=== PATIENT | male | born 1955 | race Hispanic/Latino ===

== ENCOUNTER 2016-07-19 19:33 | Inpatient (IN) | payer MEDICAID ==
--- NOTE | 2016-07-19 20:55 | Emergency Department Report ---
ED Dizziness HPI - General Chief Complaint: Dizziness Stated Complaint: FALL/FACIAL LACERATIONS Time Seen by Provider: 07/19/16 20:54 Source: patient Mode of arrival: Stretcher Limitations: Physical Limitation - History of Present Illness Initial Comments: This is a 61-year-old gentleman with a long-standing history of alcoholism. He presents to the ED today finally because he is so weak that he is becoming lightheaded every time he stands up and tries to ambulate. He reports several falls causing abrasions to his right arm as well as his left face over the last couple of days. He states he is not eating or drinking. He has a brother at the bedside who corroborates with this. Patient has not been drinking heavily for the last 3 weeks. He still is drinking one or 2 beers a day however. He does smoke heavily as well. He did see his general production manager 2 days ago regards to left facial skin cancer. He was told that the skin cancers too involved for dermatologic procedure in the office and that he would need to see a surgeon regarding more invasive treatment. Patient reports generalized body pains. He states he has a history of rheumatologic disease. He is also complaining of pain in the left facial area from his fall today. He denies chest pain or shortness of breath he denies headache. Of note is well patient recently had a left eye infection. He did see the information security manager regarding this. He is on some drops for this. He reports complete loss of the vision in his left eye over the last 2 weeks however. MD Complaint: lightheadedness, near syncope -: week(s) (3) Timing: gradual onset Description: lightheadedness, near-syncope History of Same: No History of Trauma: No Severity: moderate Improves With: rest Worsens With: movement, position Associated Symptoms: loss of appetite, weakness - Related Data Allergies Allergy/AdvReac Type Severity Reaction Status Date / Time No Known Allergies Allergy Unverified 07/19/16 20:11 ED Review of Systems ROS: Stated complaint: FALL/FACIAL LACERATIONS Other details as noted in HPI Constitutional: weakness. denies: chills, fever Eyes: eye discharge, vision change. denies: eye pain ENT: denies: ear pain, throat pain Respiratory: denies: cough, shortness of breath, wheezing Cardiovascular: denies: chest pain, palpitations Endocrine: no symptoms reported Gastrointestinal: denies: abdominal pain, nausea, diarrhea Genitourinary: denies: urgency, dysuria Musculoskeletal: arthralgia. denies: back pain, joint swelling Skin: other (L facial skin cancer). denies: rash, lesions Neurological: weakness. denies: headache, paresthesias Psychiatric: other (etoh abuse). denies: anxiety, depression Hematological/Lymphatic: denies: easy bleeding, easy bruising ED Past Medical Hx - Past Medical History Previous Medical History?: Yes Hx of Cancer: Yes (skin cancer left side of face) - Surgical History Past Surgical History?: No Hx Appendectomy: Yes (age 10) - Social History Smoking Status: Current Every Day Smoker Substance Use Type: Alcohol ED Physical Exam - General Limitations: Physical Limitation General appearance: alert, in distress (mild discomfort), other (very thin and frail appearing) - Head Head exam: Present: other (left facial aspect with a relatively large area of macerated tissue. Some slight use is noted at the base. There is some muscular tissue noted as well. It appears quite eroded in nature.) - Eye Pupils: Present: other (left eye with hazy cornea. Conjunctiva is mildly injected. There is some whitish drainage noted as well. Pupil is minimally reactive at 4 mm. Extraocular movements are noted to be intact. Vision grossly demonstrates only light darkness in the left eye. Normal vision in the right eye. The right eye is otherwise unremarkable.) - ENT ENT exam: Present: mucous membranes dry, TM's normal bilaterally - Neck Neck exam: Present: normal inspection, full ROM. Absent: meningismus, lymphadenopathy - Respiratory Respiratory exam: Present: decreased breath sounds (mild). Absent: wheezes, rales, rhonchi - Cardiovascular Cardiovascular Exam: Present: regular rate. Absent: systolic murmur, diastolic murmur - GI/Abdominal GI/Abdominal exam: Present: soft. Absent: tenderness, guarding, rebound - Extremities Exam Extremities exam: Present: other (right arm and forearm with several superficial abrasions and ecchymosis lesions. Left forearm with several ecchymosis lesions as well. Lower extremities bilaterally with chronic skin change and doughy appearance. 2-3+ edema bilaterally. Equal distal pedal pulses are noted bilaterally. Mild tenderness in pretibial area. No calf tenderness appreciated.) - Back Exam Back exam: Present: normal inspection. Absent: CVA tenderness (R), CVA tenderness (L), paraspinal tenderness, vertebral tenderness - Neurological Exam Neurological exam: Present: alert, oriented X3, other (moves all 4 extremities spontaneously) - Psychiatric Psychiatric exam: Present: depressed. Absent: homicidal ideation, suicidal ideation - Skin Skin exam: Present: warm, dry, petechiae, ecchymosis ED Course Vital Signs 07/19/16 19:35 Temperature 97.5 F L Pulse Rate 86 Respiratory 14 Rate Blood Pressure 115/84 Blood Pressure 115/84 [Right] O2 Sat by Pulse 96 Oximetry - Reevaluation(s) Reevaluation #1: 07/19/16 20:59 ECG at 2050 with normal sinus rhythm at 84 bpm with a normal GA and QRS noted. Isoelectric. There is some nonspecific Q waves noted septally as well as some Q waves inferiorly. No STEMI noted. Reevaluation #2: 07/19/16 22:13 Patient not well-appearing in general with a failure to thrive type of picture. His falls over the last couple days seem consistent with orthostatic/ hypovolemic-related syncope. Blood pressure and heart rate or okay sitting in the bed. He does not feel lightheaded or dizzy while he sitting up and talking to me at this time. He does describe persistent weakness however. Labs demonstrate hyponatremia. Given IV fluids here. He is clinically mildly dehydrated as well. Clearly appears malnourished and appearance of long-term alcohol abuse. He is very genuine in desiring help at this point. I Feel like he feels that he has hit rock bottom and is ready to clean himself up. ED Medical Decision Making - Lab Data Result diagrams: 07/19/16 20:34 07/19/16 20:34 Critical care attestation.: If time is entered above; I have spent that time in minutes in the direct care of this critically ill patient, excluding procedure time. ED Disposition Clinical Impression: Hyponatremia, Weakness, Alcoholism, Abrasions of multiple sites, Dehydration, Failure to thrive in adult Conjunctivitis Qualifiers: Conjunctivitis type: acute Acute conjunctivitis type: unspecified Laterality: left Qualified Code(s): H10.32 - Unspecified acute conjunctivitis, left eye Disposition: OP ADMITTED IP TO THIS HOSP Is pt being admited?: Yes Does the pt Need Aspirin: No Condition: Stable Referrals: PRIMARY CARE, [Primary Care Provider] - 3-5 Days Time of Disposition: 22:03
[2016-07-19 21:04] LABS: Hematocrit 29.2 % (35.5-45.6); Hemoglobin 9.9 gm/dl (11.8-15.2); Mean Corpuscular HGB Conc 34 % (32-34); Mean Corpuscular Hemoglobin 37 pg (28-32); Mean Corpuscular Volume 110 fl (84-94); Red Blood Count 2.66 M/mm3 (3.65-5.03); Red Cell Distribution Width 16.1 % (13.2-15.2); White Blood Count 4.5 K/mm3 (4.5-11.0)
[2016-07-19 21:09] LABS: Alanine Aminotransferase 17 units/L (7-56); Albumin 2.4 g/dL (3.9-5); Albumin/Globulin Ratio 0.8 %; Alkaline Phosphatase 388 units/L (35-129); Anion Gap 17 mmol/L; Blood Urea Nitrogen 5 mg/dL (9-20); Calcium 7.5 mg/dL (8.4-10.2); Carbon Dioxide 24 mmol/L (22-30); Chloride 85.1 mmol/L (98-107); Glucose 93 mg/dL (75-100); Potassium 3.6 mmol/L (3.6-5.0); Sodium 122 mmol/L (137-145); Total Protein 5.3 g/dL (6.3-8.2)
[2016-07-19] MEDS ORDERED: DILAUDID IV ONE ×2 (21:24→23:01)
[2016-07-19] MEDS ORDERED: NACL 0.9% 1000 ML 1,000 ML IV ONE (21:24)
[2016-07-19 21:34] LABS: Platelet Count 41 K/mm3 (140-440)
[2016-07-19 21:54] LABS: INR 0.92 (0.87-1.13)
[2016-07-19 21:55] LABS: Partial Thromboplastin Time 30.9 Sec. (24.2-36.6)
[2016-07-19] MEDS ORDERED: MILK OF MAGNESIA PO PRN (22:16)
[2016-07-19] MEDS ORDERED: ZOFRAN IV PRN (22:16)
[2016-07-19] MEDS ORDERED: DULCOLAX PR PRN (22:16)
--- NOTE | 2016-07-19 22:16 | History and Physical Report ---
History of Present Illness Date of examination: 07/19/16 History of present illness: This is a 61-year-old gentleman with a long-standing history of alcoholism. He presents to the ED today finally because he is so weak that he is becoming lightheaded every time he stands up and tries to ambulate. He reports several falls causing abrasions to his right arm as well as his left face over the last couple of days. He states he is not eating or drinking. He has a brother at the bedside who corroborates with this. Patient has not been drinking heavily for the last 3 weeks. He still is drinking one or 2 beers a day however. He does smoke heavily as well. He did see his excellence specialist 2 days ago regards to left facial skin cancer. He was told that the skin cancers too involved for dermatologic procedure in the office and that he would need to see a surgeon regarding more invasive treatment. Patient reports generalized body pains. He states he has a history of rheumatologic disease. He is also complaining of pain in the left facial area from his fall today. He denies chest pain or shortness of breath he denies headache. Of note is well patient recently had a left eye infection. He did see the terrazzo mechanic helper regarding this. He is on some drops for this. He reports complete loss of the vision in his left eye over the last 2 weeks however. Medications and Allergies Allergies Allergy/AdvReac Type Severity Reaction Status Date / Time No Known Allergies Allergy Verified 07/19/16 22:28 Active Meds: Active Medications Sodium Chloride (Nacl 0.9% 1000 Ml) 1,000 mls @ 999 mls/hr IV BOLUS ONE Stop: 07/19/16 22:24 Last Admin: 07/19/16 21:44 Dose: 999 mls/hr Review of Systems Constitutional: anorexia, fatigue, weakness, malaise, poor appetite Integumentary: wounds Exam - Constitutional Vitals: Temp Pulse Resp BP Pulse Ox 97.5 F L 86 14 115/84 96 07/19/16 19:35 07/19/16 19:35 07/19/16 19:35 07/19/16 19:35 07/19/16 19:35 General appearance: Present: mild distress, cachectic, disheveled - EENT Eyes: Present: PERRL, EOM intact ENT: hearing intact, clear oral mucosa, poor dentition, other (large ulcerative lesion on the left side of the face) - Neck Neck: Present: supple, normal ROM - Respiratory Respiratory effort: normal Respiratory: bilateral: CTA - Cardiovascular Rhythm: regular Heart Sounds: Present: S1 & S2 - Extremities Extremities: no ischemia, No edema - Abdominal General gastrointestinal: Present: soft, non-tender, non-distended, normal bowel sounds - Psychiatric Psychiatric: appropriate mood/affect, intact judgment & insight - Neurologic Neurologic: CNII-XII intact, moves all extremities Results - Labs CBC & Chem 7: 07/19/16 20:34 07/19/16 20:34 Labs: Laboratory Last Values WBC 4.5 K/mm3 (4.5-11.0) 07/19/16 20:34 RBC 2.66 M/mm3 (3.65-5.03) L 07/19/16 20:34 Hgb 9.9 gm/dl (11.8-15.2) L 07/19/16 20:34 Hct 29.2 % (35.5-45.6) L 07/19/16 20:34 MCV 110 fl (84-94) H 07/19/16 20:34 MCH 37 pg (28-32) H 07/19/16 20:34 MCHC 34 % (32-34) 07/19/16 20:34 RDW 16.1 % (13.2-15.2) H 07/19/16 20:34 Plt Count 41 K/mm3 (140-440) L 07/19/16 20:34 PT 12.3 Sec. (12.2-14.9) 07/19/16 20:34 INR 0.92 (0.87-1.13) 07/19/16 20:34 APTT 30.9 Sec. (24.2-36.6) 07/19/16 20:34 Sodium 122 mmol/L (137-145) L 07/19/16 20:34 Potassium 3.6 mmol/L (3.6-5.0) 07/19/16 20:34 Chloride 85.1 mmol/L (98-107) L 07/19/16 20:34 Carbon Dioxide 24 mmol/L (22-30) 07/19/16 20:34 Anion Gap 17 mmol/L 07/19/16 20:34 BUN 5 mg/dL (9-20) L 07/19/16 20:34 Creatinine 0.5 mg/dL (0.8-1.5) L 07/19/16 20:34 Estimated GFR > 60 ml/min 07/19/16 20:34 BUN/Creatinine Ratio 10.00 % 07/19/16 20:34 Glucose 93 mg/dL (75-100) 07/19/16 20:34 Calcium 7.5 mg/dL (8.4-10.2) L 07/19/16 20:34 Total Bilirubin 1.0 mg/dL (0.1-1.2) 07/19/16 20:34 AST 27 units/L (5-40) 07/19/16 20:34 ALT 17 units/L (7-56) 07/19/16 20:34 Alkaline Phosphatase 388 units/L (35-129) H 07/19/16 20:34 Total Protein 5.3 g/dL (6.3-8.2) L 07/19/16 20:34 Albumin 2.4 g/dL (3.9-5) L 07/19/16 20:34 Albumin/Globulin Ratio 0.8 % 07/19/16 20:34 TSH 7.300 mlU/mL (0.270-4.200) H 07/19/16 20:34 Assessment and Plan - Patient Problems (1) Skin cancer of face Current Visit: Yes Status: Acute Plan to address problem: Patient was seen as an outpatient by dermatology which felt that patient should have more extensive medical care for the lesion. Patient will probably need outpatient plastic surgery. Patient had a fall and hit that side of his face. We'll get facial x-rays (2) Cellulitis Current Visit: Yes Status: Acute Qualifiers: Site of cellulitis: S Site of cellulitis of extremity: S Site of cellulitis of trunk: S Laterality: L Plan to address problem: Patient is cellulitis of the bilateral lower extremities. We'll start IV antibiotics follow cultures (3) Alcoholism Current Visit: Yes Status: Acute Plan to address problem: Patient has an extensive history of alcohol abuse. Last drink was yesterday. Will start patient on CIWA protocol. We'll give thiamine and folic acid and extensive IV fluids. We'll check magnesium (4) Failure to thrive in adult Current Visit: Yes Status: Acute Plan to address problem: Patient has had poor appetite for at least 1 month according to the family. Patient is a chronic alcoholic (5) Hyponatremia Current Visit: Yes Status: Acute Plan to address problem: We will start IV fluid hydration. Continue to follow sodium level. Patient is severely malnourished (6) Weakness Current Visit: Yes Status: Acute Plan to address problem: Weakness is possibly due to decreased appetite compounded with chronic alcoholism. We'll start IV fluid hydration and will get dietary consult (7) Alcohol abuse Current Visit: Yes Status: Acute Plan to address problem: Patient has been counseled about alcohol cessation and patient will be started on CIWA protocol and will be started on IV thiamine IV folic acid
[2016-07-19] MEDS ORDERED: ATIVAN IV PRN ×2 (22:22)
[2016-07-20] MEDS: MORPHINE IV PRN ×4 (01:24→23:01)
[2016-07-20 02:37] LABS: Bilirubin,Urine NEG (Negative); Blood,Urine NEG (Negative); Ketones,Urine TR mg/dL (Negative); Leukocyte Esterase,Urine NEG (Negative); Nitrite,Urine NEG (Negative); Protein,Urine <15 mg/dL mg/dL (Negative); Urobilinogen,Urine < 2.0 mg/dL (<2.0)
[2016-07-20] MEDS: SENOKOT PO SCH ×3 (03:59→22:34)
[2016-07-20] MEDS: COLACE PO SCH ×3 (03:59→22:35)
[2016-07-20 05:47] LABS: Basophils % (Auto) 0.2 % (0.0-1.8); Eosinophils % (Auto) 0.1 % (0.0-4.3); Hematocrit 24.7 % (35.5-45.6); Hemoglobin 8.2 gm/dl (11.8-15.2); Mean Corpuscular HGB Conc 33 % (32-34); Mean Corpuscular Hemoglobin 37 pg (28-32); Red Blood Count 2.23 M/mm3 (3.65-5.03); Red Cell Distribution Width 16.3 % (13.2-15.2); White Blood Count 4.3 K/mm3 (4.5-11.0)
[2016-07-20 05:55] LABS: Mean Corpuscular Volume 111 fl (84-94); Platelet Count 36 K/mm3 (140-440)
[2016-07-20 06:06] LABS: Alanine Aminotransferase 14 units/L (7-56); Albumin 2.2 g/dL (3.9-5); Albumin/Globulin Ratio 0.9 %; Alkaline Phosphatase 311 units/L (35-129); Anion Gap 16 mmol/L; Bilirubin,Total 0.8 mg/dL (0.1-1.2); Blood Urea Nitrogen 5 mg/dL (9-20); Carbon Dioxide 22 mmol/L (22-30); Chloride 88.1 mmol/L (98-107); Glucose 77 mg/dL (75-100); Potassium 3.4 mmol/L (3.6-5.0); Sodium 123 mmol/L (137-145); Total Protein 4.7 g/dL (6.3-8.2)
[2016-07-20] MEDS: SYNTHROID PO SCH (06:58)
--- NOTE | 2016-07-20 09:23 | XRay Report ---
FACIAL BONES, 4 views: History: Pain after fall. A nondisplaced nasal bone fracture is suspected on the lateral image. The side is indeterminate. Please correlate with the patient. The sinuses are clear. The orbital cavities are intact. The zygomas and mandible within normal limits. IMPRESSION: Possible nasal bone fracture. No other facial bone abnormality detected.
[2016-07-20] MEDS ORDERED: LOVENOX SUB-Q SCH (10:00)
[2016-07-20] MEDS: K-DUR PO SCH (10:28)
[2016-07-20] MEDS: HABITROL TD SCH (10:30)
[2016-07-20] MEDS: LOVENOX SUB-Q SCH (10:30)
[2016-07-20] MEDS: VITAMIN B-1 100 MG in NACL 0.9% 50 ML IV SCH (10:30)
[2016-07-20] MEDS: LEVAQUIN 500MG/100ML 500 MG/100 ML BAG IV SCH (10:31)
[2016-07-20] MEDS: PROTONIX PO SCH ×2 (13:21→22:35)
--- NOTE | 2016-07-20 13:30 | Progress Note ---
Assessment and Plan Assessment and plan: Patient appears to be anorectic cachectic chronically ill-appearing with failure to thrive. Long-term prognosis poor. 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 Malignancy could also be playing some role as well as malnutrition. Has diffuse as indicated. Increase nutrition. Alcohol cessation (2) Abrasions of multiple sites Current Visit: Yes Status: Acute Plan to address problem: Abrasion secondary to falls thrombocytopenia alcoholism. None life threatening or infectious. Besides the left facial cancer. (3) Alcohol abuse Current Visit: Yes Status: Acute Plan to address problem: Alcohol cessation very important. Very important with his nutrition and healing of his facial ulcer. (4) Cellulitis Current Visit: Yes Status: Acute Qualifiers: Site of cellulitis: S Site of cellulitis of extremity: S Site of cellulitis of trunk: S Laterality: L Plan to address problem: Bilateral lower extremities resolving. Not very impressed by the cellulitis. Continue anabiotic so now but can change to by mouth tomorrow. (5) Dehydration Current Visit: Yes Status: Acute Plan to address problem: 10 IV volume replacement. (6) Failure to thrive in adult Current Visit: Yes Status: Acute Plan to address problem: Failure to thrive secondary to alcoholism. Agent currently on CIWA protocol. Urge by mouth intake. (7) Hyponatremia Current Visit: Yes Status: Acute Plan to address problem: Appears to be hypovolemic hyponatremia we'll continue IV normal saline. (8) Skin cancer of face Current Visit: Yes Status: Acute Plan to address problem: I will of dermatology outpatient. (9) Weakness Current Visit: Yes Status: Acute Plan to address problem: This multifactorial see above. Continue present management. History Interval history: Patient laying in bed states I'm trying to do the best I can". Patient states pain fairly well-controlled today. Being they by the nurse. No evidence of alcohol withdrawal today. Hospitalist Physical - Physical exam Narrative exam: Thin cachectic wasted appearing very weak. - Constitutional Vitals: Temp Pulse Resp BP Pulse Ox 97.3 F L 91 H 20 96/65 92 07/20/16 12:21 07/20/16 12:21 07/20/16 12:21 07/20/16 12:21 07/20/16 08:54 General appearance: Present: mild distress, cachectic, disheveled - EENT ENT: hearing intact, other (left facial cancer. With excoriation and erythema around the area.) - Neck Neck: Present: supple, normal ROM - Respiratory Respiratory effort: normal Respiratory: negative: other (or inspiratory effort.) - Cardiovascular Rhythm: regular Heart Sounds: Present: S1 & S2 - Extremities Extremities: no ischemia, pulses intact, pulses symmetrical Extremity abnormal: other (patient has redness bilateral lower extremity. Appears to be more venous as opposed to cellulitis.) - Abdominal General gastrointestinal: soft, non-tender, normal bowel sounds, other (F4) - Psychiatric Psychiatric: appropriate mood/affect, cooperative - Neurologic Neurologic: CNII-XII intact Results - Labs CBC & Chem 7: 07/20/16 04:38 07/20/16 04:38 Labs: Laboratory Last Values WBC 4.3 K/mm3 (4.5-11.0) L 07/20/16 04:38 RBC 2.23 M/mm3 (3.65-5.03) L 07/20/16 04:38 Hgb 8.2 gm/dl (11.8-15.2) L 07/20/16 04:38 Hct 24.7 % (35.5-45.6) L 07/20/16 04:38 MCV 111 fl (84-94) H 07/20/16 04:38 MCH 37 pg (28-32) H 07/20/16 04:38 MCHC 33 % (32-34) 07/20/16 04:38 RDW 16.3 % (13.2-15.2) H 07/20/16 04:38 Plt Count 36 K/mm3 (140-440) L 07/20/16 04:38 Lymph % (Auto) 11.8 % (13.4-35.0) L 07/20/16 04:38 [place] % (Auto) 7.8 % (0.0-7.3) H 07/20/16 04:38 Eos % (Auto) 0.1 % (0.0-4.3) 07/20/16 04:38 Baso % (Auto) 0.2 % (0.0-1.8) 07/20/16 04:38 Lymph # 0.5 K/mm3 (1.2-5.4) L 07/20/16 04:38 [place] # 0.3 K/mm3 (0.0-0.8) 07/20/16 04:38 Eos # 0.0 K/mm3 (0.0-0.4) 07/20/16 04:38 Baso # 0.0 K/mm3 (0.0-0.1) 07/20/16 04:38 Seg Neutrophils % 80.1 % (40.0-70.0) H 07/20/16 04:38 Seg Neutrophils # 3.4 K/mm3 (1.8-7.7) 07/20/16 04:38 PT 12.3 Sec. (12.2-14.9) 07/19/16 20:34 INR 0.92 (0.87-1.13) 07/19/16 20:34 APTT 30.9 Sec. (24.2-36.6) 07/19/16 20:34 Sodium 123 mmol/L (137-145) L 07/20/16 04:38 Potassium 3.4 mmol/L (3.6-5.0) L 07/20/16 04:38 Chloride 88.1 mmol/L (98-107) L 07/20/16 04:38 Carbon Dioxide 22 mmol/L (22-30) 07/20/16 04:38 Anion Gap 16 mmol/L 07/20/16 04:38 BUN 5 mg/dL (9-20) L 07/20/16 04:38 Creatinine 0.4 mg/dL (0.8-1.5) L 07/20/16 04:38 Estimated GFR > 60 ml/min 07/20/16 04:38 BUN/Creatinine Ratio 12.50 % 07/20/16 04:38 Glucose 77 mg/dL (75-100) 07/20/16 04:38 Calcium 7.0 mg/dL (8.4-10.2) L 07/20/16 04:38 Magnesium 2.1 mg/dL (1.7-2.3) 07/20/16 04:38 Total Bilirubin 0.8 mg/dL (0.1-1.2) 07/20/16 04:38 AST 23 units/L (5-40) 07/20/16 04:38 ALT 14 units/L (7-56) 07/20/16 04:38 Alkaline Phosphatase 311 units/L (35-129) H 07/20/16 04:38 Total Protein 4.7 g/dL (6.3-8.2) L 07/20/16 04:38 Albumin 2.2 g/dL (3.9-5) L 07/20/16 04:38 Albumin/Globulin Ratio 0.9 % 07/20/16 04:38 TSH 7.300 mlU/mL (0.270-4.200) H 07/19/16 20:34 Urine Color Yellow (Yellow) 07/19/16 Unknown Urine Turbidity Clear (Clear) 07/19/16 Unknown Urine pH 6.0 (5.0-7.0) 07/19/16 Unknown Ur Specific [place] 1.006 (1.003-1.030) 07/19/16 Unknown Urine Protein <15 mg/dl mg/dL (Negative) 07/19/16 Unknown Urine Glucose (UA) Neg mg/dL (Negative) 07/19/16 Unknown Urine Ketones Tr mg/dL (Negative) 07/19/16 Unknown Urine Blood Neg (Negative) 07/19/16 Unknown Urine Nitrite Neg (Negative) 07/19/16 Unknown Urine Bilirubin Neg (Negative) 07/19/16 Unknown Urine Urobilinogen < 2.0 mg/dL (<2.0) 07/19/16 Unknown Ur Leukocyte Esterase Neg (Negative) 07/19/16 Unknown Urine WBC (Auto) 1.0 /HPF (0.0-6.0) 07/19/16 Unknown Urine RBC (Auto) 0.0 /HPF (0.0-6.0) 07/19/16 Unknown
[2016-07-20] MEDS: NACL 0.9% 1000 ML 1,000 ML IV SCH (22:57)
[2016-07-20] MEDS: AMBIEN PO PRN (23:02)
[2016-07-21] MEDS: SYNTHROID PO SCH (06:15)
[2016-07-21] MEDS: NACL 0.9% 1000 ML 1,000 ML IV SCH ×2 (07:06→16:17)
[2016-07-21 08:51] LABS: Basophils % (Auto) 0.2 % (0.0-1.8); Eosinophils % (Auto) 0.1 % (0.0-4.3); Hematocrit 22.9 % (35.5-45.6); Hemoglobin 7.7 gm/dl (11.8-15.2); Mean Corpuscular HGB Conc 33 % (32-34); Mean Corpuscular Hemoglobin 37 pg (28-32); Red Blood Count 2.06 M/mm3 (3.65-5.03); Red Cell Distribution Width 16.7 % (13.2-15.2); White Blood Count 4.2 K/mm3 (4.5-11.0)
[2016-07-21 09:00] LABS: Mean Corpuscular Volume 111 fl (84-94); Platelet Count 38 K/mm3 (140-440)
[2016-07-21 09:12] LABS: Alanine Aminotransferase 14 units/L (7-56); Alkaline Phosphatase 310 units/L (35-129); Anion Gap 13 mmol/L; Bilirubin,Total 0.7 mg/dL (0.1-1.2); Blood Urea Nitrogen 3 mg/dL (9-20); Calcium 6.7 mg/dL (8.4-10.2); Carbon Dioxide 22 mmol/L (22-30); Chloride 96.7 mmol/L (98-107); Glucose 94 mg/dL (75-100); Potassium 3.6 mmol/L (3.6-5.0); Sodium 128 mmol/L (137-145); Total Protein 4.6 g/dL (6.3-8.2)
[2016-07-21] MEDS: PERCOCET 5/325 PO PRN ×2 (09:19→16:10)
--- NOTE | 2016-07-21 09:43 | Admit Criteria Form ---
Admission Criteria Documentation: HYPONATREMIA; HYPERNATREMIA; HYPOKALEMIA; HYPERKALEMIA; HYPOCALCEMIA; HYPERCALCEMIA Clinical Indications for Inpatient Care (Place 'X' for any and all applicable criteria): Ongoing inpatient care may be indicated for ANY ONE of the following [G](1)(2)(3 )(5): [X]I. Hyponatremia with ANY ONE of the following: [X]a) Sodium less than 130 mEq/L (mmol/L) (new) (6)(22) [ ]b) Sodium less than 135 mEq/L (mmol/L) with ANY ONE of the following: [ ]i) Severe medical etiology requiring inpatient management (eg, heart failure, hypovolemia) [ ]ii) Altered mental status [ ]iii) Seizures [ ]II. Hypernatremia with ANY ONE of the following: [ ]a) Sodium greater than 155 mEq/L (mmol/L) [ ]b) Sodium greater than 150 mEq/L (mmol/L) with ANY ONE of the following: [ ] i) Altered mental status [ ]ii) Seizures [ ]iii) Severe medical etiology (eg, hypovolemia, diabetes insipidus) [ ]iv) Severe weakness [ ]v) Severe medical etiology (eg, hemolysis, infection, drug overdose) [ ]III. Hypokalemia with ANY ONE of the following: [ ]a) Potassium less than 2.5 mEq/L (mmol/L) despite outpatient and emergency treatment [ ]b) Potassium less than 3.0 mEq/L (mmol/L) with ANY ONE of the following: [ ]i) Weakness [ ]ii) Cardiac abnormality (eg, arrhythmia, conduction disturbance) [ ]iii) Cardiac ischemia [ ]iv) Ileus [ ]v) Ongoing medical cause requiring inpatient management. ( e.g., acute renal wasting, SIADH) [ ]vi) Other severe symptoms [ ] IV. Hyperkalemia with ANY ONE of the following: [ ]a) Potassium greater than 6.5 mEq/L (mmol/L) [ ]b) Potassium greater than 5 mEq/L (mmol/L) with ANY ONE of the following: [ ]i) Severe ECG findings [H] [ ]ii) Acute worsening of renal failure (creatinine greater than 2.5 mg/dL (221 micromoles/L) or significant elevation for age and size) [ ] V. Hypocalcemia with ANY ONE of the following: [ ]a) Calcium less than 7 mg/dL (1.75 mmol/L) despite outpatient and emergency treatment(19) [ ]b) Calcium less than 8 mg/dL (2 mmol/L) with significant symptoms or findings; examples include: [ ]i) Cardiac abnormality (eg, arrhythmia or conduction disturbance) [ ]ii) Altered mental status [ ]iii) Seizures [ ]iv) Breathing difficulty [ ]v) Muscle spasms [ ]. Hypercalcemia with ANY ONE of the following: [ ]a) Calcium greater than 14 mg/dL (3.5 mmol/L) [ ]b) Calcium greater than 12 mg/dL (3 mmol/L) with ANY ONE of the following: [ ]i) Significant dehydration or hypovolemia as indicated by ANY ONE of the following(2): [ ]1. Clinically significant dehydration as indicated by ANY ONE of the following: [ ]A. Acute loss of weight from baseline (5% of body weight in adults, 9% in pediatric patients) [ ]B. Hemodynamic instability [ ]C. Acute renal failure [ ]D. Serum sodium greater than 150 mEq/L (mmol/L) [ ]2) Dehydration that is persistent indicated by ALL of the following: [ ]A. Oral rehydration therapy not tolerated or insufficient to adequately correct dehydration [ ]B. Appropriate intravenous treatment (eg, fluids ) does not readily correct dehydration ie, after 12 to 24 hours of treatment) [ ]ii) Significant symptoms or findings; examples include: [ ]1) Altered mental status [ ]2) Cardiac abnormality (eg, arrhythmia, conduction disturbance) [ ]3) Cardiac abnormality (eg, arrhythmia, conduction disturbance) The original [facility] content created by [employer] has been revised. The portions of the content which have been revised are identified through the use of italic text or in bold, and [facility] has neither reviewed nor approved the modified material. All other unmodified content is copyright [facility] [employer] Please see references footnoted in the original [facility] [employer] edition 2016 Admission Criteria Met: Yes
[2016-07-21 10:49] LABS: Albumin 1.9 g/dL (3.9-5); Albumin/Globulin Ratio 0.7 %
[2016-07-21] MEDS: HABITROL TD SCH (10:51)
[2016-07-21] MEDS: LOVENOX SUB-Q SCH (10:52)
[2016-07-21] MEDS: K-DUR PO SCH (10:52)
[2016-07-21] MEDS: LEVAQUIN 500MG/100ML 500 MG/100 ML BAG IV SCH (10:53)
[2016-07-21] MEDS: SENOKOT PO SCH ×2 (10:53→21:29)
[2016-07-21] MEDS: COLACE PO SCH ×2 (10:53→21:29)
[2016-07-21] MEDS: PROTONIX PO SCH ×2 (10:53→21:29)
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
[2016-07-21] MEDS: VITAMIN B-1 100 MG in NACL 0.9% 50 ML IV SCH (16:10)
[2016-07-21] MEDS: FOLVITE PO SCH (16:11)
[2016-07-21] MEDS: TYLENOL PO PRN (21:30)
[2016-07-22] MEDS: NACL 0.9% 1000 ML 1,000 ML IV SCH (01:07)
[2016-07-22 06:29] LABS: Basophils % (Auto) 0.1 % (0.0-1.8); Eosinophils % (Auto) 0.3 % (0.0-4.3); Hemoglobin 7.5 gm/dl (11.8-15.2); Mean Corpuscular HGB Conc 33 % (32-34); Mean Corpuscular Hemoglobin 37 pg (28-32); Red Blood Count 2.05 M/mm3 (3.65-5.03); Red Cell Distribution Width 16.7 % (13.2-15.2); White Blood Count 3.7 K/mm3 (4.5-11.0)
[2016-07-22] MEDS: SYNTHROID PO SCH (06:39)
[2016-07-22 06:42] LABS: Anion Gap 15 mmol/L; Blood Urea Nitrogen 2 mg/dL (9-20); Calcium 6.6 mg/dL (8.4-10.2); Carbon Dioxide 20 mmol/L (22-30); Chloride 100.4 mmol/L (98-107); Glucose 94 mg/dL (75-100); Potassium 3.6 mmol/L (3.6-5.0); Sodium 132 mmol/L (137-145)
[2016-07-22 06:46] LABS: Mean Corpuscular Volume 112 fl (84-94)
[2016-07-22 06:47] LABS: Platelet Count 37 K/mm3 (140-440)
[2016-07-22] MEDS: HABITROL TD SCH (10:55)
[2016-07-22] MEDS: K-DUR PO SCH (10:55)
[2016-07-22] MEDS: SENOKOT PO SCH ×2 (10:56→21:27)
[2016-07-22] MEDS: LOVENOX SUB-Q SCH (10:56)
[2016-07-22] MEDS: FOLVITE PO SCH (10:56)
[2016-07-22] MEDS: COLACE PO SCH ×2 (10:56→21:27)
[2016-07-22] MEDS: LEVAQUIN PO SCH (10:56)
[2016-07-22] MEDS: PROTONIX PO SCH ×2 (10:56→21:28)
[2016-07-22] MEDS ORDERED: LASIX IV ONE ×2 (10:59→12:00)
[2016-07-22] MEDS: TYLENOL PO PRN (11:03)
[2016-07-22] MEDS: VITAMIN B-1 100 MG in NACL 0.9% 50 ML IV SCH (11:11)
--- NOTE | 2016-07-22 12:07 | Progress Note ---
Assessment and Plan Assessment and plan: This is a 61-year-old gentleman with a long-standing history of alcoholism. He presents to the ED finally because he is so weak that he is becoming lightheaded every time he stands up and tries to ambulate. He reports several falls causing abrasions to his right arm as well as his left face over the last couple of days. He states he is not eating or drinking. He has a brother at the bedside who corroborates with this. Patient has not been drinking heavily for the last 3 weeks. He still is drinking one or 2 beers a day however. He does smoke heavily as well. He did see his tap dancer 2 days ago regards to left facial skin cancer. He was told that the skin cancers too involved for dermatologic procedure in the office and that he would need to see a surgeon regarding more invasive treatment. The follow up is pending. Patient reports generalized body pains. He states he has a history of rheumatologic disease. He is also complaining of pain in the left facial area from his fall. He denies chest pain or shortness of breath he denies headache. Of note is well patient recently had a left eye infection. He did see the marine service manager regarding this. He is on some drops for this. He reports complete loss of the vision in his left eye over the last 2 weeks however and has planned follow up. * Failure to thrive in an adult * Facial skin cancer w/ cellulitis * Hyponatremia * Bilateral lower extremity cellulitis * Alcohol abuse * Anorexic with severe protein calorie malnutrition * Generalized weakness Plan * Gradual decline in hemoglobin and we'll continue to monitor, this is likely secondary to aplastic anemia from direct toxic effects of alcohol no indication for transfusion at this time. * We'll discontinue IV fluids sodium has been improving patient is developing bilateral lower extremity edema * We'll give a dose of Lasix. * Oncology eval outpatient * Anticipate discharge in a.m. Patient has follow-up appointment for surgical Morhs procedure of the face. * Follow with opthalmologist. * We'll obtain PT evaluation and treat * School Cafeteria Cook consult. * Extensive Discussion about alcohol abuse, patent verbalized understand * Wean off oxygen. * DVT/GI prophylaxis History Interval history: Follow up: Weakness, hyponatremia Patient seen and examined this morning, remains weak, has not ambulated yet. Denies any chest pain, nausea, vomiting, diarrhea No fever noted blood pressure controlled No adverse events reported to me by nursing staff Hospitalist Physical - Physical exam Narrative exam: VITAL SIGNS: Reviewed. GENERAL: The patient appeared cachetic, lathergic. Vital signs as documented. HEAD: No signs of head trauma.(left facial carcinoma, with lateral abrahsion, EYES: Left pupil nonreactive. Extraocular motions intact. EARS: Hearing grossly intact. MOUTH: Oropharynx is normal. NECK: No adenopathy, no JVD. CHEST: Chest with clear breath sounds bilaterally. No wheezes, rales, or rhonchi. CARDIAC: Regular rate and rhythm. S1 and S2, without murmurs, gallops, or rubs. VASCULAR: 1+ Edema. Peripheral pulses normal and equal in all extremities. ABDOMEN: Soft, without detectable tenderness. No sign of distention. No rebound or guarding, and no masses palpated. Bowel Sounds normal. MUSCULOSKELETAL: Good range of motion of all major joints. Extremities without clubbing, cyanosis. + trace edema bilaterally. NEUROLOGIC EXAM: Alert and oriented x 3. No focal sensory or strength deficits. Speech normal. Follows commands. PSYCHIATRIC: Mood normal. SKIN: ;left facial abrasion - Constitutional Vitals: Temp Pulse Resp BP Pulse Ox 97.6 F 96 H 20 110/76 100 07/22/16 11:36 07/22/16 11:36 07/22/16 11:36 07/22/16 11:36 07/22/16 11:41 General appearance: Present: mild distress, cachectic, disheveled Results - Labs CBC & Chem 7: 07/22/16 05:48 07/22/16 05:48 Labs: Laboratory Last Values WBC 3.7 K/mm3 (4.5-11.0) L 07/22/16 05:48 RBC 2.05 M/mm3 (3.65-5.03) L 07/22/16 05:48 Hgb 7.5 gm/dl (11.8-15.2) L 07/22/16 05:48 Hct 23.0 % (35.5-45.6) L 07/22/16 05:48 MCV 112 fl (84-94) H 07/22/16 05:48 MCH 37 pg (28-32) H 07/22/16 05:48 MCHC 33 % (32-34) 07/22/16 05:48 RDW 16.7 % (13.2-15.2) H 07/22/16 05:48 Plt Count 37 K/mm3 (140-440) L 07/22/16 05:48 Lymph % (Auto) 16.0 % (13.4-35.0) 07/22/16 05:48 [place] % (Auto) 12.0 % (0.0-7.3) H 07/22/16 05:48 Eos % (Auto) 0.3 % (0.0-4.3) 07/22/16 05:48 Baso % (Auto) 0.1 % (0.0-1.8) 07/22/16 05:48 Lymph # 0.6 K/mm3 (1.2-5.4) L 07/22/16 05:48 [place] # 0.4 K/mm3 (0.0-0.8) 07/22/16 05:48 Eos # 0.0 K/mm3 (0.0-0.4) 07/22/16 05:48 Baso # 0.0 K/mm3 (0.0-0.1) 07/22/16 05:48 Seg Neutrophils % 71.6 % (40.0-70.0) H 07/22/16 05:48 Seg Neutrophils # 2.6 K/mm3 (1.8-7.7) 07/22/16 05:48 PT 12.3 Sec. (12.2-14.9) 07/19/16 20:34 INR 0.92 (0.87-1.13) 07/19/16 20:34 APTT 30.9 Sec. (24.2-36.6) 07/19/16 20:34 Sodium 132 mmol/L (137-145) L 07/22/16 05:48 Potassium 3.6 mmol/L (3.6-5.0) 07/22/16 05:48 Chloride 100.4 mmol/L (98-107) 07/22/16 05:48 Carbon Dioxide 20 mmol/L (22-30) L 07/22/16 05:48 Anion Gap 15 mmol/L 07/22/16 05:48 BUN 2 mg/dL (9-20) L 07/22/16 05:48 Creatinine 0.4 mg/dL (0.8-1.5) L 07/22/16 05:48 Estimated GFR > 60 ml/min 07/22/16 05:48 BUN/Creatinine Ratio 5.00 % 07/22/16 05:48 Glucose 94 mg/dL (75-100) 07/22/16 05:48 POC Glucose 110 (70-105) H 07/22/16 11:02 Calcium 6.6 mg/dL (8.4-10.2) L 07/22/16 05:48 Magnesium 2.1 mg/dL (1.7-2.3) 07/20/16 04:38 Total Bilirubin 0.7 mg/dL (0.1-1.2) 07/21/16 08:31 AST 26 units/L (5-40) 07/21/16 08:31 ALT 14 units/L (7-56) 07/21/16 08:31 Alkaline Phosphatase 310 units/L (35-129) H 07/21/16 08:31 Total Protein 4.6 g/dL (6.3-8.2) L 07/21/16 08:31 Albumin 1.9 g/dL (3.9-5) L 07/21/16 08:31 Albumin/Globulin Ratio 0.7 % 07/21/16 08:31 TSH 7.300 mlU/mL (0.270-4.200) H 07/19/16 20:34 Urine Color Yellow (Yellow) 07/19/16 Unknown Urine Turbidity Clear (Clear) 07/19/16 Unknown Urine pH 6.0 (5.0-7.0) 07/19/16 Unknown Ur Specific [place] 1.006 (1.003-1.030) 07/19/16 Unknown Urine Protein <15 mg/dl mg/dL (Negative) 07/19/16 Unknown Urine Glucose (UA) Neg mg/dL (Negative) 07/19/16 Unknown Urine Ketones Tr mg/dL (Negative) 07/19/16 Unknown Urine Blood Neg (Negative) 07/19/16 Unknown Urine Nitrite Neg (Negative) 07/19/16 Unknown Urine Bilirubin Neg (Negative) 07/19/16 Unknown Urine Urobilinogen < 2.0 mg/dL (<2.0) 07/19/16 Unknown Ur Leukocyte Esterase Neg (Negative) 07/19/16 Unknown Urine WBC (Auto) 1.0 /HPF (0.0-6.0) 07/19/16 Unknown Urine RBC (Auto) 0.0 /HPF (0.0-6.0) 07/19/16 Unknown
[2016-07-22] MEDS ORDERED: ROXICODONE PO PRN (13:23)
[2016-07-22] MEDS: ROXICODONE PO SCH ×2 (13:57→21:28)
[2016-07-22] MEDS: AMBIEN PO PRN (23:09)
[2016-07-23 06:01] LABS: Hematocrit 20.3 % (35.5-45.6); Hemoglobin 6.8 gm/dl (11.8-15.2); Mean Corpuscular HGB Conc 34 % (32-34); Mean Corpuscular Hemoglobin 37 pg (28-32); Red Blood Count 1.82 M/mm3 (3.65-5.03); Red Cell Distribution Width 16.8 % (13.2-15.2); White Blood Count 3.3 K/mm3 (4.5-11.0)
[2016-07-23 06:05] LABS: Mean Corpuscular Volume 111 fl (84-94); Platelet Count 40 K/mm3 (140-440)
[2016-07-23] MEDS: ROXICODONE PO SCH ×3 (06:07→22:41)
[2016-07-23] MEDS: SYNTHROID PO SCH (06:07)
[2016-07-23 06:25] LABS: Anion Gap 14 mmol/L; Blood Urea Nitrogen 2 mg/dL (9-20); Calcium 6.3 mg/dL (8.4-10.2); Carbon Dioxide 21 mmol/L (22-30); Chloride 101.4 mmol/L (98-107); Glucose 86 mg/dL (75-100); Potassium 3.2 mmol/L (3.6-5.0); Sodium 133 mmol/L (137-145)
--- NOTE | 2016-07-23 08:27 | Progress Note ---
Assessment and Plan Assessment and plan: This is a 61-year-old gentleman with a long-standing history of alcoholism. He presents to the ED finally because he is so weak that he is becoming lightheaded every time he stands up and tries to ambulate. He reports several falls causing abrasions to his right arm as well as his left face over the last couple of days. He states he is not eating or drinking. He has a brother at the bedside who corroborates with this. Patient has not been drinking heavily for the last 3 weeks. He still is drinking one or 2 beers a day however. He does smoke heavily as well. He did see his home service consultant 2 days ago regards to left facial skin cancer. He was told that the skin cancers too involved for dermatologic procedure in the office and that he would need to see a surgeon regarding more invasive treatment. The follow up is pending. Patient reports generalized body pains. He states he has a history of rheumatologic disease. He is also complaining of pain in the left facial area from his fall. He denies chest pain or shortness of breath he denies headache. Of note is well patient recently had a left eye infection. He did see the motor express clerk regarding this. He is on some drops for this. He reports complete loss of the vision in his left eye over the last 2 weeks however and has planned follow up. * Acute blood loss anemia ? Question etiology * Failure to thrive in an adult * Facial skin cancer w/ cellulitis * Hyponatremia * Thrombocytopenia likely secondary to alcohol abuse * Hypokalemia * Bilateral lower extremity cellulitis * Alcohol abuse * Anorexic with severe protein calorie malnutrition * Generalized weakness Plan * Hold lovenox. Give 2 units PRBC. check stool for occult blood. continue PPI BID. Hemonc consult. * Discontinue IV fluids * We'll give a dose of Lasix. * Oncology eval outpatient * Patient has follow-up appointment for surgical Morhs procedure of the face. * Follow with opthalmologist. * We'll obtain PT evaluation and treat * Emergency Response Coordinator consult. * Extensive Discussion about alcohol abuse, patent verbalized understand * Wean off oxygen. * DVT/GI prophylaxis History Interval history: Follow up: Weakness, hyponatremia Patient seen and examined this morning, remains weak, did ambulate with physical therapy post loose stool today that is dark Denies any chest pain, nausea, vomiting No fever noted blood pressure controlled No adverse events reported to me by nursing staff Hospitalist Physical - Physical exam Narrative exam: VITAL SIGNS: Reviewed. GENERAL: The patient appeared cachetic. Vital signs as documented. HEAD: No signs of head trauma.(left facial carcinoma, with lateral abrahsion, EYES: Left pupil nonreactive. Extraocular motions intact. EARS: Hearing grossly intact. MOUTH: Oropharynx is normal. NECK: No adenopathy, no JVD. CHEST: Chest with clear breath sounds bilaterally. No wheezes, rales, or rhonchi. CARDIAC: Regular rate and rhythm. S1 and S2, without murmurs, gallops, or rubs. VASCULAR: 1+ Edema. Peripheral pulses normal and equal in all extremities. ABDOMEN: Soft, without detectable tenderness. No sign of distention. No rebound or guarding, and no masses palpated. Bowel Sounds normal. MUSCULOSKELETAL: Good range of motion of all major joints. Extremities without clubbing, cyanosis. + trace edema bilaterally. NEUROLOGIC EXAM: Alert and oriented x 3. No focal sensory or strength deficits. Speech normal. Follows commands. PSYCHIATRIC: Mood normal. SKIN: ;left facial abrasion - Constitutional Vitals: Temp Pulse Resp BP Pulse Ox 98.6 F 101 H 16 103/67 98 07/23/16 08:00 07/23/16 08:00 07/23/16 08:00 07/23/16 08:00 07/23/16 08:00 General appearance: Present: mild distress, cachectic, disheveled Results - Labs CBC & Chem 7: 07/23/16 05:05 07/23/16 05:05 Labs: Laboratory Last Values WBC 3.3 K/mm3 (4.5-11.0) L 07/23/16 05:05 RBC 1.82 M/mm3 (3.65-5.03) L 07/23/16 05:05 Hgb 6.8 gm/dl (11.8-15.2) L 07/23/16 05:05 Hct 20.3 % (35.5-45.6) L 07/23/16 05:05 MCV 111 fl (84-94) H 07/23/16 05:05 MCH 37 pg (28-32) H 07/23/16 05:05 MCHC 34 % (32-34) 07/23/16 05:05 RDW 16.8 % (13.2-15.2) H 07/23/16 05:05 Plt Count 40 K/mm3 (140-440) L 07/23/16 05:05 Lymph % (Auto) 16.0 % (13.4-35.0) 07/22/16 05:48 [place] % (Auto) 12.0 % (0.0-7.3) H 07/22/16 05:48 Eos % (Auto) 0.3 % (0.0-4.3) 07/22/16 05:48 Baso % (Auto) 0.1 % (0.0-1.8) 07/22/16 05:48 Lymph # 0.6 K/mm3 (1.2-5.4) L 07/22/16 05:48 [place] # 0.4 K/mm3 (0.0-0.8) 07/22/16 05:48 Eos # 0.0 K/mm3 (0.0-0.4) 07/22/16 05:48 Baso # 0.0 K/mm3 (0.0-0.1) 07/22/16 05:48 Seg Neutrophils % 71.6 % (40.0-70.0) H 07/22/16 05:48 Seg Neutrophils # 2.6 K/mm3 (1.8-7.7) 07/22/16 05:48 PT 12.3 Sec. (12.2-14.9) 07/19/16 20:34 INR 0.92 (0.87-1.13) 07/19/16 20:34 APTT 30.9 Sec. (24.2-36.6) 07/19/16 20:34 Sodium 133 mmol/L (137-145) L 07/23/16 05:05 Potassium 3.2 mmol/L (3.6-5.0) L 07/23/16 05:05 Chloride 101.4 mmol/L (98-107) 07/23/16 05:05 Carbon Dioxide 21 mmol/L (22-30) L 07/23/16 05:05 Anion Gap 14 mmol/L 07/23/16 05:05 BUN 2 mg/dL (9-20) L 07/23/16 05:05 Creatinine 0.5 mg/dL (0.8-1.5) L 07/23/16 05:05 Estimated GFR > 60 ml/min 07/23/16 05:05 BUN/Creatinine Ratio 4.00 % 07/23/16 05:05 Glucose 86 mg/dL (75-100) 07/23/16 05:05 POC Glucose 119 (70-105) H 07/22/16 20:57 Calcium 6.3 mg/dL (8.4-10.2) L 07/23/16 05:05 Magnesium 2.1 mg/dL (1.7-2.3) 07/20/16 04:38 Total Bilirubin 0.7 mg/dL (0.1-1.2) 07/21/16 08:31 AST 26 units/L (5-40) 07/21/16 08:31 ALT 14 units/L (7-56) 07/21/16 08:31 Alkaline Phosphatase 310 units/L (35-129) H 07/21/16 08:31 Total Protein 4.6 g/dL (6.3-8.2) L 07/21/16 08:31 Albumin 1.9 g/dL (3.9-5) L 07/21/16 08:31 Albumin/Globulin Ratio 0.7 % 07/21/16 08:31 TSH 7.300 mlU/mL (0.270-4.200) H 07/19/16 20:34 Free T4 1.15 ng/dL (0.76-1.46) 07/22/16 14:01 Urine Color Yellow (Yellow) 07/19/16 Unknown Urine Turbidity Clear (Clear) 07/19/16 Unknown Urine pH 6.0 (5.0-7.0) 07/19/16 Unknown Ur Specific [place] 1.006 (1.003-1.030) 07/19/16 Unknown Urine Protein <15 mg/dl mg/dL (Negative) 07/19/16 Unknown Urine Glucose (UA) Neg mg/dL (Negative) 07/19/16 Unknown Urine Ketones Tr mg/dL (Negative) 07/19/16 Unknown Urine Blood Neg (Negative) 07/19/16 Unknown Urine Nitrite Neg (Negative) 07/19/16 Unknown Urine Bilirubin Neg (Negative) 07/19/16 Unknown Urine Urobilinogen < 2.0 mg/dL (<2.0) 07/19/16 Unknown Ur Leukocyte Esterase Neg (Negative) 07/19/16 Unknown Urine WBC (Auto) 1.0 /HPF (0.0-6.0) 07/19/16 Unknown Urine RBC (Auto) 0.0 /HPF (0.0-6.0) 07/19/16 Unknown
[2016-07-23] MEDS ORDERED: K-DUR PO ONE (08:28)
[2016-07-23] MEDS ORDERED: NACL 0.9% 500 ML 500 ML IV ONE (10:00)
[2016-07-23] MEDS: LEVAQUIN PO SCH (10:39)
[2016-07-23] MEDS: PROTONIX PO SCH ×2 (10:39→22:41)
[2016-07-23] MEDS: FOLVITE PO SCH (10:39)
[2016-07-23] MEDS: COLACE PO SCH ×2 (10:39→22:41)
[2016-07-23] MEDS: VITAMIN B-1 PO SCH (10:39)
[2016-07-23] MEDS: HABITROL TD SCH (10:40)
[2016-07-23] MEDS: K-DUR PO SCH (10:40)
[2016-07-23] MEDS: SENOKOT PO SCH ×2 (10:41→22:41)
[2016-07-23] MEDS: ULTRAM PO PRN (18:41)
[2016-07-24] MEDS: AMBIEN PO PRN (01:53)
[2016-07-24] MEDS: SYNTHROID PO SCH (06:02)
[2016-07-24] MEDS: ROXICODONE PO SCH ×3 (06:02→22:47)
--- NOTE | 2016-07-24 08:02 | Progress Note ---
Assessment and Plan Assessment and plan: This is a 61-year-old gentleman with a long-standing history of alcoholism. He presents to the ED finally because he is so weak that he is becoming lightheaded every time he stands up and tries to ambulate. He reports several falls causing abrasions to his right arm as well as his left face over the last couple of days. He states he is not eating or drinking. He has a brother at the bedside who corroborates with this. Patient has not been drinking heavily for the last 3 weeks. He still is drinking one or 2 beers a day however. He does smoke heavily as well. He did see his field services analyst 2 days ago regards to left facial skin cancer. He was told that the skin cancers too involved for dermatologic procedure in the office and that he would need to see a surgeon regarding more invasive treatment. The follow up is pending. Patient reports generalized body pains. He states he has a history of rheumatologic disease. He is also complaining of pain in the left facial area from his fall. He denies chest pain or shortness of breath he denies headache. Of note is well patient recently had a left eye infection. He did see the freight solicitor regarding this. He is on some drops for this. He reports complete loss of the vision in his left eye over the last 2 weeks however and has planned follow up. * Acute blood loss anemia ? Question etiology * Hypotensive * Failure to thrive in an adult * Facial skin cancer w/ cellulitis * Hyponatremia * Thrombocytopenia likely secondary to alcohol abuse * liver cirhosis * Possible spenic infarct * Bilateral pleural effusion * Hypokalemia * Bilateral lower extremity cellulitis * Alcohol abuse * Anorexic with severe protein calorie malnutrition * Generalized weakness Plan * Continue to Hold lovenox. * await repeat labs, patient received Give 2 units PRBC. check stool for occult blood. continue PPI BID. Hemonc consult pending * GI consult * Nursing staff educated again on obtaining stool sample, patient had one BM yesterday * monitor BP. on the low side today * replace K * Oncology eval outpatient * Patient has follow-up appointment for surgical Morhs procedure of the face. * Follow with opthalmologist. * We'll obtain PT evaluation and treat * Motion Graphics Designer consult. * Extensive Discussion about alcohol abuse, patent verbalized understand * Wean off oxygen. * DVT/GI prophylaxis History Interval history: Follow up: Weakness, hyponatremia Patient seen and examined this morning, improving, no bm yet today, did ambulate with physical therapy Denies any chest pain, nausea, vomiting No fever noted blood pressure controlled No adverse events reported to me by nursing staff Hospitalist Physical - Physical exam Narrative exam: VITAL SIGNS: Reviewed. GENERAL: The patient appeared cachetic. Vital signs as documented. HEAD: No signs of head trauma.(left facial carcinoma, with lateral abrasion, EYES: Left pupil nonreactive. Extraocular motions intact. EARS: Hearing grossly intact. MOUTH: Oropharynx is normal. NECK: No adenopathy, no JVD. CHEST: Chest with clear breath sounds bilaterally. No wheezes, rales, or rhonchi. CARDIAC: Regular rate and rhythm. S1 and S2, without murmurs, gallops, or rubs. VASCULAR: 1+ Edema. Peripheral pulses normal and equal in all extremities. ABDOMEN: Soft, without detectable tenderness. No sign of distention. No rebound or guarding, and no masses palpated. Bowel Sounds normal. MUSCULOSKELETAL: Good range of motion of all major joints. Extremities without clubbing, cyanosis. + trace edema bilaterally. NEUROLOGIC EXAM: Alert and oriented x 3. No focal sensory or strength deficits. Speech normal. Follows commands. PSYCHIATRIC: Mood normal. SKIN: ;left facial abrasion - Constitutional Vitals: Temp Pulse Resp BP Pulse Ox 98.6 F 94 H 18 102/67 98 07/24/16 07:57 07/24/16 07:57 07/24/16 07:57 07/24/16 07:57 07/24/16 07:57 General appearance: Present: mild distress, cachectic, disheveled Results - Labs CBC & Chem 7: 07/24/16 09:12 07/24/16 09:12 Labs: Laboratory Last Values WBC 3.3 K/mm3 (4.5-11.0) L 07/23/16 05:05 RBC 1.82 M/mm3 (3.65-5.03) L 07/23/16 05:05 Hgb 6.8 gm/dl (11.8-15.2) L 07/23/16 05:05 Hct 20.3 % (35.5-45.6) L 07/23/16 05:05 MCV 111 fl (84-94) H 07/23/16 05:05 MCH 37 pg (28-32) H 07/23/16 05:05 MCHC 34 % (32-34) 07/23/16 05:05 RDW 16.8 % (13.2-15.2) H 07/23/16 05:05 Plt Count 40 K/mm3 (140-440) L 07/23/16 05:05 Lymph % (Auto) 16.0 % (13.4-35.0) 07/22/16 05:48 [place] % (Auto) 12.0 % (0.0-7.3) H 07/22/16 05:48 Eos % (Auto) 0.3 % (0.0-4.3) 07/22/16 05:48 Baso % (Auto) 0.1 % (0.0-1.8) 07/22/16 05:48 Lymph # 0.6 K/mm3 (1.2-5.4) L 07/22/16 05:48 [place] # 0.4 K/mm3 (0.0-0.8) 07/22/16 05:48 Eos # 0.0 K/mm3 (0.0-0.4) 07/22/16 05:48 Baso # 0.0 K/mm3 (0.0-0.1) 07/22/16 05:48 Seg Neutrophils % 71.6 % (40.0-70.0) H 07/22/16 05:48 Seg Neutrophils # 2.6 K/mm3 (1.8-7.7) 07/22/16 05:48 PT 12.3 Sec. (12.2-14.9) 07/19/16 20:34 INR 0.92 (0.87-1.13) 07/19/16 20:34 APTT 30.9 Sec. (24.2-36.6) 07/19/16 20:34 Sodium 133 mmol/L (137-145) L 07/23/16 05:05 Potassium 3.2 mmol/L (3.6-5.0) L 07/23/16 05:05 Chloride 101.4 mmol/L (98-107) 07/23/16 05:05 Carbon Dioxide 21 mmol/L (22-30) L 07/23/16 05:05 Anion Gap 14 mmol/L 07/23/16 05:05 BUN 2 mg/dL (9-20) L 07/23/16 05:05 Creatinine 0.5 mg/dL (0.8-1.5) L 07/23/16 05:05 Estimated GFR > 60 ml/min 07/23/16 05:05 BUN/Creatinine Ratio 4.00 % 07/23/16 05:05 Glucose 86 mg/dL (75-100) 07/23/16 05:05 POC Glucose 119 (70-105) H 07/22/16 20:57 Calcium 6.3 mg/dL (8.4-10.2) L 07/23/16 05:05 Magnesium 2.1 mg/dL (1.7-2.3) 07/20/16 04:38 Total Bilirubin 0.7 mg/dL (0.1-1.2) 07/21/16 08:31 AST 26 units/L (5-40) 07/21/16 08:31 ALT 14 units/L (7-56) 07/21/16 08:31 Alkaline Phosphatase 310 units/L (35-129) H 07/21/16 08:31 Total Protein 4.6 g/dL (6.3-8.2) L 07/21/16 08:31 Albumin 1.9 g/dL (3.9-5) L 07/21/16 08:31 Albumin/Globulin Ratio 0.7 % 07/21/16 08:31 TSH 7.300 mlU/mL (0.270-4.200) H 07/19/16 20:34 Free T4 1.15 ng/dL (0.76-1.46) 07/22/16 14:01 Urine Color Yellow (Yellow) 07/19/16 Unknown Urine Turbidity Clear (Clear) 07/19/16 Unknown Urine pH 6.0 (5.0-7.0) 07/19/16 Unknown Ur Specific [place] 1.006 (1.003-1.030) 07/19/16 Unknown Urine Protein <15 mg/dl mg/dL (Negative) 07/19/16 Unknown Urine Glucose (UA) Neg mg/dL (Negative) 07/19/16 Unknown Urine Ketones Tr mg/dL (Negative) 07/19/16 Unknown Urine Blood Neg (Negative) 07/19/16 Unknown Urine Nitrite Neg (Negative) 07/19/16 Unknown Urine Bilirubin Neg (Negative) 07/19/16 Unknown Urine Urobilinogen < 2.0 mg/dL (<2.0) 07/19/16 Unknown Ur Leukocyte Esterase Neg (Negative) 07/19/16 Unknown Urine WBC (Auto) 1.0 /HPF (0.0-6.0) 07/19/16 Unknown Urine RBC (Auto) 0.0 /HPF (0.0-6.0) 07/19/16 Unknown Blood Type B POSITIVE 07/23/16 10:21 Antibody Screen Negative 07/23/16 10:21 Crossmatch See Detail 07/23/16 10:21
[2016-07-24 09:51] LABS: Basophils % (Auto) 0.7 % (0.0-1.8); Eosinophils % (Auto) 0.6 % (0.0-4.3); Hematocrit 30.7 % (35.5-45.6); Hemoglobin 10.3 gm/dl (11.8-15.2); Mean Corpuscular HGB Conc 34 % (32-34); Mean Corpuscular Hemoglobin 36 pg (28-32); Mean Corpuscular Volume 107 fl (84-94); Red Blood Count 2.87 M/mm3 (3.65-5.03); Red Cell Distribution Width 18.2 % (13.2-15.2); Reticulocyte % 3.18 % (0.78-2.58); White Blood Count 4.4 K/mm3 (4.5-11.0)
[2016-07-24 09:52] LABS: Platelet Count 47 K/mm3 (140-440)
[2016-07-24 10:14] LABS: Anion Gap 15 mmol/L; Blood Urea Nitrogen 3 mg/dL (9-20); Calcium 6.6 mg/dL (8.4-10.2); Carbon Dioxide 20 mmol/L (22-30); Chloride 99.5 mmol/L (98-107); Glucose 111 mg/dL (75-100); Potassium 3.4 mmol/L (3.6-5.0); Sodium 131 mmol/L (137-145)
[2016-07-24 10:15] LABS: Iron 144 ug/dL (49-181)
[2016-07-24 11:48] LABS: Total Iron Binding Capacity 156 mcg/dL (250-450)
[2016-07-24] MEDS: HABITROL TD SCH (11:48)
[2016-07-24] MEDS: PROTONIX IV SCH ×2 (11:48→22:48)
[2016-07-24] MEDS: FOLVITE PO SCH (11:57)
[2016-07-24] MEDS: SENOKOT PO SCH ×2 (11:57→22:47)
[2016-07-24] MEDS: VITAMIN B-1 PO SCH (11:57)
[2016-07-24] MEDS: COLACE PO SCH ×2 (11:58→22:47)
[2016-07-24] MEDS: MORPHINE IV PRN (11:58)
[2016-07-24] MEDS: LEVAQUIN PO SCH (11:58)
[2016-07-24] MEDS: K-DUR PO SCH (12:13)
[2016-07-24] MEDS ORDERED: NACL ONE (13:55)
--- NOTE | 2016-07-24 15:14 | Gastroenterology Consultation ---
History of Present Illness - Reason for Consult Consult date: 07/24/16 anemia Requesting physician: BRO BURNETTE - History of Present Illness Mr Amaro is a 61 yo male with h/o alcohol abuse who presents with syncopal episodes, multiple falls, and severe anemia/thrombocytopenia. Pt reports long history of alcohol abuse, but has cut down over the past few weeks. He denies prior diagnosis of known cirrhosis. He has has multiple falls recently which has led to injuries/bruising of his arms. He has a h/o left sided skin cancer of his face which bled severely as well after a fall per pt. He denies any signs of overt GI bleeding (no melena, hematochezia, or reported hematemesis). Past History Past Medical History: cancer (skin cancer) Social history: alcohol abuse Family history: no significant family history Medications and Allergies Allergies Allergy/AdvReac Type Severity Reaction Status Date / Time No Known Allergies Allergy Verified 07/19/16 22:28 Home Medications Medication Instructions Recorded Confirmed Last Taken Type Ciprofloxacin 0.2%(Nf) 1 each OT Q4-6H 07/20/16 07/20/16 Unknown History [Ciprofloxacin OTIC] Moxifloxacin HCl [Vigamox 0.5%] 1 drop OP Q8HR 07/20/16 07/20/16 Unknown History Ranitidine HCl [Zantac 300 MG TAB] 300 mg PO QHS 07/20/16 07/20/16 Unknown History Thiamine [Vitamin B-1] 100 mg PO QDAY 07/20/16 07/20/16 Unknown History Vitamin D3/Folic Acid [Folixapure 100 mg PO DAILY 07/20/16 07/20/16 Unknown History Tablet] Active Meds: Active Medications Bisacodyl (Dulcolax) 10 mg CO QDAY PRN PRN Reason: Constipation unrelieved by MOM Docusate Sodium (Colace) 100 mg PO BID [facility] Last Admin: 07/24/16 11:58 Dose: 100 mg Folic Acid (Folvite) 1 mg PO DAILY [facility] Last Admin: 07/24/16 11:57 Dose: 1 mg Levofloxacin (Levaquin) 500 mg PO Q24HR [facility] Last Admin: 07/24/16 11:58 Dose: 500 mg Levothyroxine Sodium (Synthroid) 75 mcg PO DAILY@0600 [facility] Last Admin: 07/24/16 06:02 Dose: 75 mcg Lorazepam (Ativan) 2 mg IV Q1HR PRN PRN Reason: CIWA-Ar 8-15 Last Admin: 07/20/16 01:25 Dose: 2 mg Lorazepam (Ativan) 4 mg IV Q1HR PRN PRN Reason: CIWA-Ar 16-25 Magnesium Hydroxide (Milk Of Magnesia) 30 ml PO Q4H PRN PRN Reason: Constipation Morphine Sulfate (Morphine) 2 mg IV Q4H PRN PRN Reason: Pain, Moderate (4-6) Last Admin: 07/24/16 11:58 Dose: 2 mg Nicotine (Habitrol) 21 mg TD QDAY [facility] Last Admin: 07/24/16 11:48 Dose: 21 mg Ondansetron HCl (Zofran) 4 mg IV Q8H PRN PRN Reason: N/V unrelieved by Reglan Oxycodone HCl (Roxicodone) 5 mg PO Q8H [facility] Last Admin: 07/24/16 14:49 Dose: 5 mg Pantoprazole Sodium (Protonix) 40 mg IV BID [facility] Last Admin: 07/24/16 11:48 Dose: 40 mg Potassium Chloride (K-Dur) 30 meq PO QDAY [facility] Last Admin: 07/24/16 12:13 Dose: 30 meq Senna (Senokot) 8.6 mg PO Q12HR [facility] Last Admin: 07/24/16 11:57 Dose: 8.6 mg Thiamine HCl (Vitamin B-1) 100 mg PO QDAY [facility] Last Admin: 07/24/16 11:57 Dose: 100 mg Tramadol HCl (Ultram) 25 mg PO Q4H PRN PRN Reason: Pain, Moderate (4-6) Last Admin: 07/23/16 18:41 Dose: 25 mg Zolpidem Tartrate (Ambien) 5 mg PO QHS PRN PRN Reason: Insomnia Last Admin: 07/24/16 01:53 Dose: 5 mg Review of Systems - Review of Systems All systems: negative Constitutional: weakness, poor appetite Gastrointestinal: nausea, vomiting Neurological: head injury Exam - Exam Narrative Exam: Gen: nad, disheveled appearing, chronically ill appearing thin male Head: left facial wound/injury Eyes: anicteric Mouth: no oral lesions, dry mucous membranes CV: RRR, no murmurs Lungs: CTAB, non labored Abd: soft, nt, nd, +bs Ext: no c/c/e Skin: multiple extremity abrasions/bruising Psych: appropriate mood and affect - Constitutional Vital Signs: Temp Pulse Resp BP Pulse Ox 98.4 F 97 H 18 100/68 98 07/24/16 12:10 07/24/16 12:10 07/24/16 12:10 07/24/16 12:10 07/24/16 12:10 - Labs CBC & Chem 7: 07/24/16 09:12 07/24/16 09:12 Lab Results: Laboratory Results - last 24 hr 07/23/16 07/24/16 07/24/16 10:21 09:12 09:12 WBC 4.4 L RBC 2.87 L Hgb 10.3 L D Hct 30.7 L D MCV 107 H D MCH 36 H MCHC 34 RDW 18.2 H Plt Count 47 L Lymph % (Auto) 22.0 [place] % (Auto) 15.0 H Eos % (Auto) 0.6 Baso % (Auto) 0.7 Lymph # 1.0 L [place] # 0.7 Eos # 0.0 Baso # 0.0 Seg Neutrophils % 61.7 Seg Neutrophils # 2.7 Percent Retic 3.18 H Sodium 131 L Potassium 3.4 L Chloride 99.5 Carbon Dioxide 20 L Anion Gap 15 BUN 3 L Creatinine 0.5 L Estimated GFR > 60 BUN/Creatinine Ratio 6.00 Glucose 111 H Calcium 6.6 L Iron TIBC Ferritin Vitamin B12 Folate Blood Type B POSITIVE Antibody Screen Negative Crossmatch See Detail 07/24/16 07/24/16 07/24/16 09:12 09:12 09:12 WBC RBC Hgb Hct MCV MCH MCHC RDW Plt Count Lymph % (Auto) [place] % (Auto) Eos % (Auto) Baso % (Auto) Lymph # [place] # Eos # Baso # Seg Neutrophils % Seg Neutrophils # Percent Retic Sodium Potassium Chloride Carbon Dioxide Anion Gap BUN Creatinine Estimated GFR BUN/Creatinine Ratio Glucose Calcium Iron 144 TIBC 156 L Ferritin 137.5 Vitamin B12 2000 H Folate Blood Type Antibody Screen Crossmatch 07/24/16 09:12 WBC RBC Hgb Hct MCV MCH MCHC RDW Plt Count Lymph % (Auto) [place] % (Auto) Eos % (Auto) Baso % (Auto) Lymph # [place] # Eos # Baso # Seg Neutrophils % Seg Neutrophils # Percent Retic Sodium Potassium Chloride Carbon Dioxide Anion Gap BUN Creatinine Estimated GFR BUN/Creatinine Ratio Glucose Calcium Iron TIBC Ferritin Vitamin B12 Folate 6.53 L Blood Type Antibody Screen Crossmatch Assessment and Plan 61 yo male with h/o alcohol abuse presents following multiple falls and syncopal episodes. Pt with pancytopenia, suspect related to alcohol abuse. denies overt GI bleeding. -f/u CT of abdomen (including signs of possible cirrhosis) -hold off on endoscopic evaluation unless pt shows signs of overt GI bleeding -will follow clinical course, further recommendations after review of CT scan and if further studies needed if concern for cirrhosis
--- NOTE | 2016-07-24 15:15 | Cat Scan Report ---
CT of the abdomen with IV and oral contrast. Findings: There are bilateral moderate size pleural effusions. Subsegmental atelectasis is noted bilaterally. There is diffuse hypodensity of the liver parenchyma with no focal abnormalities. There is minimal nodularity of the hepatic contour. The spleen is normal in size. There is a wedge-shaped hypodensity in the posterior aspect of the spleen measuring approximately 3 cm in maximum diameter. The pancreas is atrophic but otherwise unremarkable. No definite evidence of varices is seen. The kidneys are normal in size and configuration. There is a 1 cm somewhat wedge-shaped hypodensity extending to the cortex of the right mid kidney which is otherwise unremarkable. There is small mild ascites in the upper abdomen. There is generalized edema of the bowel wall in the visualized small bowel. There is less involvement of the colon. Anasarca is present. Impression: Hepatic steatosis with nodular configuration of the liver probably due to cirrhosis. Mild ascites and anasarca are present. 2. Wedge-shaped hypodensity in the spleen probably represents an infarction. 3. Small right renal infarct. 4. Generalized bowel wall edema, more pronounced in the visualized small bowel. This may be due to hypoproteinemia. 5. Bilateral pleural effusions.
--- NOTE | 2016-07-24 20:25 | Consultation ---
REASON FOR CONSULTATION: Anemia. ASSESSMENT: 1. Pancytopenia, most likely secondary to alcoholism? liver cirrhosis, bone marrow suppression by alcohol. 2. Anemia, could be multifactorial, including but not limited to possible gastrointestinal blood loss ? possible esophageal varices secondary to suspected liver cirrhosis. Deficiency anemia including B12, folate, in view of alcoholism and ? iron deficiency if the patient has documented bleeding. Bone marrow suppression secondary to alcoholism. 3. Admitted, not eating or drinking, hypertensive, ? dehydration. 4. Thrombocytopenia, again secondary to alcoholism, ? liver cirrhosis. 5. Bilateral lower extremities cellulitis. 6. History of alcoholism. 7. Severe protein calorie malnutrition. 8. Failure to thrive, generalized weakness, chronic fatigue. 9. Facial skin cancer, plan for surgery. 10. Hypertension at admission. 11. Electrolyte imbalance, hyponatremia. 12. Admission x-ray showing possible nasal fracture. RECOMMENDATIONS: The patient with history of alcoholism, could very well have liver cirrhosis, esophageal varices, occult bleeding, pancytopenia secondary to bone marrow suppression, ? liver cirrhosis, anemia, secondary to occult gastrointestinal blood loss, deficiency anemia, folate and B12, also possible iron deficiency secondary to occult blood loss. Again, bone marrow suppression with alcoholism. Considering this, I do recommend additional studies, stool occult blood, already in progress, obtain B12, folic acid level, as well as iron studies, retic count. A CT scan of the abdomen to evaluate liver status and spleen status. Also, I do recommend GI consult. Results will be reviewed, further recommendations to follow depending on finding. I have discussed my findings and my recommendations with the patient, questions invited and answered. When I left the room, the patient had no additional questions. When the patient is discharged, prior to discharge appointment to be made with the [facility], Dr. Ivana Bhat to be seen within 1 week following discharge. Admission x-ray, possible nasal fracture, recommend ENT consult. Note: Labs studies and CT scan of the abdomen had been entered into orders. I do recommend a GI consult and ENT consult as has been described above. HISTORY OF PRESENT ILLNESS: The patient is a 61-year-old white male with history of alcoholism, longstanding (also father has been alcoholic as he says). According to the patient, he has been inpatient institution for alcoholism. Presented with history of lightheadedness, dizziness. Every time, he stands up , he gets dizzy. He has several falls, multiple bruises and abrasions, including right arm, left side of the face, and this has been going on for several days prior to admission. Also, he had not been eating and drinking. In addition to this, he has lesion in the left side of the face, a quarter size, suspected to be cancer, has been seen by restaurant general manager, work in progress, could not be done locally in the doctor office because of the extent of lesion. He needs a surgeon for invasive treatment. On admission, as stated above, he was weak, tired, not eating, ? dehydrated. His hemoglobin was 9.9, hematocrit 29.2, MCV 110, MCH 37, MCHC 34, RDW 16, platelets of 41,000. Following hydration yesterday, white blood count 3.3, hemoglobin 6.8, hematocrit 20.3, MCV 111, MCH 37, MCHC 34, RDW 16.8, platelets stable at 40,000. His differential is essentially unremarkable except mild increase in monocytes between 8 and 12 and his segs has been 80% on admission, on 07/22/2016, it went down to 71%. Considering his anemia, we were consulted. Talking to the patient, he has been transfused 2 units of packed red blood cells last night. His followup CBC is pending. The patient denies knowledge of prior history of liver cirrhosis, esophageal varices, splenomegaly. Nonetheless, information is \\"unreliable.\\" He denies recent history of fresh blood in stool, melena. He denies prior history of blood transfusion. Following admission, he feels better. He is stronger. Eating better. He is not dizzy anymore. He does not feel that he is passing out or any falling anymore, though he is still weak. No recent abdominal pain, left upper quadrant consistent with splenomegaly. He has no prior history of peptic ulcer disease. No nausea or vomiting. No new lumps any parts of the body. No fever, no night sweats, no recurrent infection, no new bone pain. PAST MEDICAL HISTORY: The patient has been alcoholic lifelong. Has been treated inside institution for alcoholism in the past on \\" several times.\\" He has a skin lesion on the left side of the face, several years in duration, and plan for surgery when possible. He denies a heart disease. He has recent eye infection for which he is seen by senior java programmer. He has decreased vision in the left eye. Has been seen by senior java programmer in the past. Denies prior surgery. He is lifelong tobacco abuser. SOCIAL HISTORY: The patient is one time, one time. He has 2 children, 28 and 34 years of age. 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 He smokes 1 pack per day since he has been teenager. He has been an alcoholic, has been institutionalized several times for alcoholism. Continued to drink, amount varies from 2 beer per day to \\"multiple\\" beers per day. He never drinks liquor as he says. FAMILY HISTORY: Skin cancer runs in the family, otherwise unremarkable. ALLERGIES: The patient stated he is not allergic to any medications. CURRENT MEDICATIONS: Dulcolax, Colace, folic acid, Levaquin, Synthroid, Lorazepam, morphine as needed, Habitrol, Zofran, Roxicodone, Protonix, and potassium (see records for details). REVIEW OF SYSTEMS: Including general, skin, HEENT, endocrine, respiratory, cardiovascular, GI, , BELT MEASURER, musculoskeletal, blood-lymphatics, mood-affect, no other related symptoms reported other than being described above. PHYSICAL EXAMINATION: GENERAL: A 61-year-old white male, well-developed, poorly nourished, cachectic, with poor personal hygiene, but alert and oriented x 3. SKIN: Extensive bruises noted all over the body from recent multiple falls. HEENT: Quarter size lesion, deep, left side of the face, consistent with a skin cancer. Pale conjunctivae. Normal sclerae color. NECK: No adenopathy. CHEST: Normal breathing pattern. LUNGS: Clear. No rales, no wheezing. HEART: Regular rate and rhythm. No S3, gallop. ABDOMEN: Soft, nontender, no palpable masses. No palpable liver or spleen. Normal bowel sounds. No inguinal adenopathy. SPINE: Nontender. GENITOURINARY: No tenderness at both costovertebral angles. CENTRAL NERVOUS SYSTEM: At the time of evaluation, the patient is fully alert and oriented x 3. No focal weakness.?decreased vision left eye EXTREMITIES: No calves tenderness bilaterally. MUSCULOSKELETAL: No acute joint swelling. MOOD-AFFECT: Unremarkable. BLOOD-LYMPHATICS: Extensive bruises and abrasions all over the body from recent fall. No petechiae. No adenopathy, palpable liver or spleen. LABORATORY DATA: CBC on admission has been noted above. PT 12.3, INR 0.9, PTT 30 (no coagulopathy). Bilirubin on admission 1.0. AST on admission 27. ALT on admission 17. Albumin on admission 2.4, following hydration 1.9 with subsequent calcium 6.6. BUN 2, creatinine 0.4. Sodium 133, on admission 122 (hyponatremia, improved). Facial x-rays on admission, possible nasal fracture. [facility]# [id number] ASA/NTS MTDD
[2016-07-25] MEDS: AMBIEN PO PRN (01:37)
[2016-07-25] MEDS: ROXICODONE PO SCH ×3 (05:43→22:26)
[2016-07-25] MEDS: SYNTHROID PO SCH (05:43)
[2016-07-25 06:32] LABS: Hematocrit 27.5 % (35.5-45.6); Hemoglobin 9.1 gm/dl (11.8-15.2); Mean Corpuscular HGB Conc 33 % (32-34); Mean Corpuscular Hemoglobin 36 pg (28-32); Mean Corpuscular Volume 109 fl (84-94); Red Blood Count 2.53 M/mm3 (3.65-5.03); Red Cell Distribution Width 19.4 % (13.2-15.2); White Blood Count 4.4 K/mm3 (4.5-11.0)
[2016-07-25 06:35] LABS: Platelet Count 59 K/mm3 (140-440)
[2016-07-25 06:49] LABS: Iron 144 ug/dL (49-181); Total Iron Binding Capacity 156 mcg/dL (250-450); Transferrin TNR mg/dl (180-329)
[2016-07-25] MEDS: MORPHINE IV PRN (09:55)
[2016-07-25] MEDS: PROTONIX IV SCH ×2 (10:46→22:20)
[2016-07-25] MEDS: FOLVITE PO SCH (10:46)
[2016-07-25] MEDS: SENOKOT PO SCH ×2 (10:46→22:21)
[2016-07-25] MEDS: VITAMIN B-1 PO SCH (10:46)
[2016-07-25] MEDS: LEVAQUIN PO SCH (10:46)
[2016-07-25] MEDS: HABITROL TD SCH (10:46)
[2016-07-25] MEDS: COLACE PO SCH ×2 (10:46→22:21)
[2016-07-25] MEDS: K-DUR PO SCH (10:46)
--- NOTE | 2016-07-25 13:06 | Gastroenterology Progress Note ---
<LUIS GOFF - Last Filed: 07/25/16 13:10> Assessment and Plan -61 yo male with h/o alcohol abuse presents following multiple falls and syncopal episodes. Pt with pancytopenia, suspect related to alcohol abuse. denies overt GI bleeding. -Ct c/w Hepatic steatosis vs cirrhotic contour of the liver. Noted possible splenic infarct and bowel wall edema likely 2/2 low albumin (1.9 on 07/21/16)/ anasarca. -hold off on endoscopic evaluation unless pt shows signs of overt GI bleeding -Platelets are decreased, however INR WNL. -ETOH cessation -Likely 2/2 ETOH use, will check Hepatitis panel. Subjective Date of service: 07/25/16 Interval history: Patient is tolerating diet well. No complaints. Objective - Constitutional Vitals: Temp Pulse Resp BP Pulse Ox 98.6 F 96 H 16 109/66 98 07/25/16 07:25 07/25/16 07:25 07/25/16 07:25 07/25/16 07:25 07/25/16 07:25 General appearance: no acute distress, temporal muscle wasting, other (Mulitple areas of bruising to upper ext facial area.) - EENT Eyes: EOM intact ENT: hearing intact - Respiratory Respiratory: bilateral: CTA - Cardiovascular Rhythm: regular Heart Sounds: Present: S1 & S2 - Gastrointestinal General gastrointestinal: Present: soft, non-tender, normal bowel sounds - Integumentary Integumentary: Present: warm, dry - Labs CBC & Chem 7: 07/25/16 05:18 07/24/16 09:12 Labs: Laboratory Results - last 24 hr 07/24/16 07/25/16 09:12 05:18 WBC 4.4 L RBC 2.53 L Hgb 9.1 L Hct 27.5 L MCV 109 H MCH 36 H MCHC 33 RDW 19.4 H Plt Count 59 L Iron 144 TIBC 156 L % Saturation 92.31 Transferrin TNR <OSMEL ELY - Last Filed: 07/25/16 14:34> Assessment and Plan - Patient Problems (1) Anemia Current Visit: Yes Status: Acute Qualifiers: Anemia type: bone marrow failure Iron deficiency anemia type: I Vitamin B12 deficiency anemia type: V Folate deficiency anemia type: F Bone marrow failure anemia type: aplastic anemia, due to other external agents Hemolytic anemia type: H Other causes of anemia: O Qualified Code(s): D61.2 - Aplastic anemia due to other external agents Plan to address problem: Anemia is likely multifactorial, but there is no evidence of bleeding. He appears to have alcoholic liver disease, fatty liver and/or cirrhosis. No inpatient endoscopic studies will be planned. Please advise patient to f/u to our office in 3 weeks post discharge. Will sign off at this point and f/u at your request. Thank you very much. Objective - Constitutional Vitals: Temp Pulse Resp BP Pulse Ox 98.6 F 96 H 16 109/66 98 07/25/16 07:25 07/25/16 07:25 07/25/16 07:25 07/25/16 07:25 07/25/16 07:25 - Labs CBC & Chem 7: 07/25/16 05:18 07/24/16 09:12 Labs: Laboratory Results - last 24 hr 07/24/16 07/25/16 09:12 05:18 WBC 4.4 L RBC 2.53 L Hgb 9.1 L Hct 27.5 L MCV 109 H MCH 36 H MCHC 33 RDW 19.4 H Plt Count 59 L Iron 144 TIBC 156 L % Saturation 92.31 Transferrin TNR
--- NOTE | 2016-07-25 16:17 | Progress Note ---
Assessment and Plan Assessment and plan: This is a 61-year-old gentleman with a long-standing history of alcoholism. He presents to the ED finally because he is so weak that he is becoming lightheaded every time he stands up and tries to ambulate. He reports several falls causing abrasions to his right arm as well as his left face over the last couple of days. He states he is not eating or drinking. He has a brother at the bedside who corroborates with this. Patient has not been drinking heavily for the last 3 weeks. He still is drinking one or 2 beers a day however according to his report. He does smoke heavily as well. He did see his [facility] 2 days ago regards to left facial skin cancer. He was told that the skin cancers too involved for dermatologic procedure in the office and that he would need to see a surgeon regarding more invasive treatment. The follow up is pending. Patient reports generalized body pains. He states he has a history of rheumatologic disease. He is also complaining of pain in the left facial area from his fall. He denies chest pain or shortness of breath he denies headache. Of note is well patient recently had a left eye infection. He did see the intervention nurse regarding this. He is on some drops for this. He reports complete loss of the vision in his left eye over the last 2 weeks however and has planned follow up. On hospitalization the patient was noted to have hemoglobin drop for which GI was consulted A did apparently appear to be pancytopenia secondary to probably bone marrow depression from alcohol. He was transfused 2 units packed red blood cells. He stool occult blood was negative. He did have a CT of the abdomen which showed liver cirrhosis. We did discuss all the findings and the need to have twice yearly ultrasound to rule out hepatocellular carcinoma. He is also to follow with GI outpatient. Physical therapy evaluation. And as requested for a [place] [facility] facility as he is still generally weak. We did discuss the finding of facial skin cancer with the patient this will be followed outpatient as he already has a physician working on this and discussed this with the son and with the older brother. We did expressly discussed with him need to quit alcohol use patient verbalized understanding the risk associated discussed in detail. He is clinically stable at this point tolerating diet he did have an episode where he was unable to void but this resolved. Images study also revealed bilateral pleural effusion considering the patient is breathing appropriately no indication to sample the pulmonary fluids. Nevertheless a splint to the family disc finding. As he may need to be reevaluated outpatient to repeat imaging studies required to ensure resolution. * Acute blood loss anemia ? Question etiology * Hypotensive-resolved * Failure to thrive in an adult * Facial skin cancer w/ cellulitis * Hyponatremia * Alcohol liver disease with superimposed fatty liver disease * Thrombocytopenia likely secondary to alcohol abuse * liver cirrhosis * Possible spenic infarct * Bilateral pleural effusion- * Anasarca * Hypokalemia * Bilateral lower extremity cellulitis * Alcohol abuse * Anorexic with severe protein calorie malnutrition * Generalized weakness Plan * Continue to Hold lovenox. * GI input appreciated. Considering the patient is breathing appropriately no indication to sample the pulmonary fluids. Nevertheless a splint to the family disc finding. As he may need to be reevaluated outpatient to repeat imaging studies required to ensure resolution. * Nursing staff educated again on obtaining stool sample, patient had one BM yesterday * monitor BP. on the low side today * replace K * Oncology eval outpatient * Patient has follow-up appointment for surgical Morhs procedure of the face. * Follow with opthalmologist. * Continue rehabilitation and discharged * Handicrafts Teacher consult. * Extensive Discussion about alcohol abuse, patent verbalized understand * Wean off oxygen. * DVT/GI prophylaxis * Plan Of care discussed with the older brother, son, the patient and another family member. History Interval history: Follow up: Weakness, hyponatremia Patient seen and examined this morning, improving, continues to move bowel looks more alert today than previously. Although reports generalized weakness Denies any chest pain, nausea, vomiting No fever noted blood pressure controlled No adverse events reported to me by nursing staff Hospitalist Physical - Physical exam Narrative exam: VITAL SIGNS: Reviewed. GENERAL: The patient appeared cachetic. Vital signs as documented. HEAD: No signs of head trauma.(left facial carcinoma, with lateral abrasion), EYES: Left pupil nonreactive. Extraocular motions intact. EARS: Hearing grossly intact. MOUTH: Oropharynx is normal. NECK: No adenopathy, no JVD. CHEST: Chest with clear breath sounds bilaterally. No wheezes, rales, or rhonchi. CARDIAC: Regular rate and rhythm. S1 and S2, without murmurs, gallops, or rubs. VASCULAR: 1+ Edema. Peripheral pulses normal and equal in all extremities. ABDOMEN: Soft, without detectable tenderness. No sign of distention. No rebound or guarding, and no masses palpated. Bowel Sounds normal. MUSCULOSKELETAL: Good range of motion of all major joints. Extremities without clubbing, cyanosis. + trace edema bilaterally. NEUROLOGIC EXAM: Alert and oriented x 3. No focal sensory or strength deficits. Speech normal. Follows commands. PSYCHIATRIC: Mood normal. SKIN: ;left facial abrasion - Constitutional Vitals: Temp Pulse Resp BP Pulse Ox 98.2 F 90 20 128/76 97 07/25/16 14:55 07/25/16 15:04 07/25/16 15:04 07/25/16 14:55 07/25/16 14:55 General appearance: Present: mild distress, cachectic, disheveled Results - Labs CBC & Chem 7: 07/25/16 05:18 07/24/16 09:12 Labs: Laboratory Last Values WBC 4.4 K/mm3 (4.5-11.0) L 07/25/16 05:18 RBC 2.53 M/mm3 (3.65-5.03) L 07/25/16 05:18 Hgb 9.1 gm/dl (11.8-15.2) L 07/25/16 05:18 Hct 27.5 % (35.5-45.6) L 07/25/16 05:18 MCV 109 fl (84-94) H 07/25/16 05:18 MCH 36 pg (28-32) H 07/25/16 05:18 MCHC 33 % (32-34) 07/25/16 05:18 RDW 19.4 % (13.2-15.2) H 07/25/16 05:18 Plt Count 59 K/mm3 (140-440) L 07/25/16 05:18 Lymph % (Auto) 22.0 % (13.4-35.0) 07/24/16 09:12 [place] % (Auto) 15.0 % (0.0-7.3) H 07/24/16 09:12 Eos % (Auto) 0.6 % (0.0-4.3) 07/24/16 09:12 Baso % (Auto) 0.7 % (0.0-1.8) 07/24/16 09:12 Lymph # 1.0 K/mm3 (1.2-5.4) L 07/24/16 09:12 [place] # 0.7 K/mm3 (0.0-0.8) 07/24/16 09:12 Eos # 0.0 K/mm3 (0.0-0.4) 07/24/16 09:12 Baso # 0.0 K/mm3 (0.0-0.1) 07/24/16 09:12 Seg Neutrophils % 61.7 % (40.0-70.0) 07/24/16 09:12 Seg Neutrophils # 2.7 K/mm3 (1.8-7.7) 07/24/16 09:12 Percent Retic 3.18 % (0.78-2.58) H 07/24/16 09:12 PT 12.3 Sec. (12.2-14.9) 07/19/16 20:34 INR 0.92 (0.87-1.13) 07/19/16 20:34 APTT 30.9 Sec. (24.2-36.6) 07/19/16 20:34 Sodium 131 mmol/L (137-145) L 07/24/16 09:12 Potassium 3.4 mmol/L (3.6-5.0) L 07/24/16 09:12 Chloride 99.5 mmol/L (98-107) 07/24/16 09:12 Carbon Dioxide 20 mmol/L (22-30) L 07/24/16 09:12 Anion Gap 15 mmol/L 07/24/16 09:12 BUN 3 mg/dL (9-20) L 07/24/16 09:12 Creatinine 0.5 mg/dL (0.8-1.5) L 07/24/16 09:12 Estimated GFR > 60 ml/min 07/24/16 09:12 BUN/Creatinine Ratio 6.00 % 07/24/16 09:12 Glucose 111 mg/dL (75-100) H 07/24/16 09:12 POC Glucose 119 (70-105) H 07/22/16 20:57 Calcium 6.6 mg/dL (8.4-10.2) L 07/24/16 09:12 Magnesium 2.1 mg/dL (1.7-2.3) 07/20/16 04:38 Iron 144 ug/dL (49-181) 07/24/16 09:12 TIBC 156 mcg/dL (250-450) L 07/24/16 09:12 % Saturation 92.31 % 07/24/16 09:12 Transferrin TNR 07/24/16 09:12 Ferritin 137.5 ng/mL (13.0-400.0) 07/24/16 09:12 Total Bilirubin 0.7 mg/dL (0.1-1.2) 07/21/16 08:31 AST 26 units/L (5-40) 07/21/16 08:31 ALT 14 units/L (7-56) 07/21/16 08:31 Alkaline Phosphatase 310 units/L (35-129) H 07/21/16 08:31 Total Protein 4.6 g/dL (6.3-8.2) L 07/21/16 08:31 Albumin 1.9 g/dL (3.9-5) L 07/21/16 08:31 Albumin/Globulin Ratio 0.7 % 07/21/16 08:31 Vitamin B12 2000 pg/mL (211-911) H 07/24/16 09:12 Folate 6.53 ng/mL (7.3-26.0) L 07/24/16 09:12 TSH 7.300 mlU/mL (0.270-4.200) H 07/19/16 20:34 Free T4 1.15 ng/dL (0.76-1.46) 07/22/16 14:01 Urine Color Yellow (Yellow) 07/19/16 Unknown Urine Turbidity Clear (Clear) 07/19/16 Unknown Urine pH 6.0 (5.0-7.0) 07/19/16 Unknown Ur Specific [place] 1.006 (1.003-1.030) 07/19/16 Unknown Urine Protein <15 mg/dl mg/dL (Negative) 07/19/16 Unknown Urine Glucose (UA) Neg mg/dL (Negative) 07/19/16 Unknown Urine Ketones Tr mg/dL (Negative) 07/19/16 Unknown Urine Blood Neg (Negative) 07/19/16 Unknown Urine Nitrite Neg (Negative) 07/19/16 Unknown Urine Bilirubin Neg (Negative) 07/19/16 Unknown Urine Urobilinogen < 2.0 mg/dL (<2.0) 07/19/16 Unknown Ur Leukocyte Esterase Neg (Negative) 07/19/16 Unknown Urine WBC (Auto) 1.0 /HPF (0.0-6.0) 07/19/16 Unknown Urine RBC (Auto) 0.0 /HPF (0.0-6.0) 07/19/16 Unknown Blood Type B POSITIVE 07/23/16 10:21 Antibody Screen Negative 07/23/16 10:21 Crossmatch See Detail 07/23/16 10:21 - Imaging and Cardiology CT scan - abdomen: image reviewed (liver cirrhosis)
--- NOTE | 2016-07-25 22:18 | Hem/Onc Progress Note ---
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 Hepatitis panel negative. Dr. Alfred Anna from GI has seen patient. Conservative management. EGD as outpatient prn.Continue on folic acid and thiamine (2) Alcohol abuse Current Visit: Yes Status: Acute Plan to address problem: CT abdo showed liver cirrhosis. Encouraged to stop drinking ETOH. ?Rehab. (3) Skin cancer of face Current Visit: Yes Status: Acute Plan to address problem: Surgery planned as outpatient (4) Cellulitis and abscess of leg Current Visit: Yes Status: Acute Subjective Date of service: 07/25/16 Interval history: Hurts all over. Knows he shouldn't drink ETOH any more. Objective - Constitutional Vitals: Last Vital Signs Temp 98.3 F 07/25/16 20:20 Pulse 103 H 07/25/16 20:20 Resp 18 07/25/16 20:20 BP 110/68 07/25/16 20:20 Pulse Ox 98 07/25/16 20:20 General appearance: mild distress, cachectic, temporal muscle wasting, disheveled Performance status: 3-limited selfcare - EENT ENT: hearing intact, poor dentition, other (Left side of face with excoriation/ abrasion (bandaged)) - Neck Neck: supple - Respiratory Respiratory effort: Positive: normal Respiratory: bilateral: CTA - Cardiovascular Heart Rate: 106 Heart Sounds: Present: S1 & S2 Extremities: no ischemia, abnormal Extremity abnormal: edema (1+), other (Upper extremities bandaged. Multiple ecchymotic areas) - Gastrointestinal General gastrointestinal: Present: distended, normal bowel sounds Rectal Exam: deferred - Genitourinary Male genitourinary: Present: deferred - Integumentary Integumentary: pale - Musculoskeletal Musculoskeletal: generalized weakness - Neurologic Neurologic: CNII-XII intact - Psychiatric Psychiatric: cooperative (Multiple ecchymosis extremities) - Labs Lab Results: Laboratory Results - last 24 hr 07/24/16 07/25/16 07/25/16 09:12 05:18 15:29 WBC 4.4 L RBC 2.53 L Hgb 9.1 L Hct 27.5 L MCV 109 H MCH 36 H MCHC 33 RDW 19.4 H Plt Count 59 L Iron 144 TIBC 156 L % Saturation 92.31 Transferrin TNR Hepatitis A IgM Ab Non-reactive Hep Bs Antigen Non-reactive Hep B Core IgM Ab Non-reactive Hepatitis C Antibody Non-reactive
[2016-07-26] MEDS: AMBIEN PO PRN (00:35)
[2016-07-26] MEDS: SYNTHROID PO SCH (06:03)
[2016-07-26] MEDS: ROXICODONE PO SCH (06:03)
[2016-07-26 09:22] VITALS: BP 121/73
--- NOTE | 2016-07-26 09:47 | Discharge Summary ---
Providers - Providers Date of Admission: 07/19/16 22:16 Date of discharge: 07/26/16 Attending physician: BRO BURNETTE MD 07/19/16 23:15 Consult to Dietitian/Nutrition [CONS] Routine Physician Instructions: Reason For Exam: Reason for Consult: Malnutrition 07/21/16 10:25 Consult to Wound/ET Nurse [CONS] Routine Reason For Exam: wound eval 07/21/16 13:14 Consult to Case Management [CONS] Routine Services Needed at Discharge: Other Notified:: cw 07/22/16 10:04 Occupational Therapy Evaluate and Treat [CONS] Routine Comment: Reason For Exam: Debility unable to ambulate. Physical Therapy Evaluation and Treat [CONS] Routine Comment: Reason For Exam: unable to ambulate. ?alcohol induced weakness 07/23/16 08:25 Consult to Physician [CONS] Routine Consulting Provider: ELMER MITCHELL Reason For Exam: acute blood loss anemia, plt Place consult to:: dr. siddiqui Notified:: office Phone number called:: Was contact made?: Yes If yes, spoke with:: heydi Time called:: 09:36 07/24/16 07:59 Consult to Physician [CONS] Routine Consulting Provider: MARCO DONG Reason For Exam: suspected gi bleed Place consult to:: DR. DONG Notified:: OFFICE Phone number called:: [phone] Was contact made?: Yes If yes, spoke with:: SHIRLEY Time called:: 09:19 Comment:: DOROTHY NOTIFIED Primary care physician: [employer] SPECIALIST Hospitalization Reason for admission: fall Condition: Stable Hospital course: This is a 61-year-old gentleman with a long-standing history of alcoholism. He presents to the ED finally because he is so weak that he is becoming lightheaded every time he stands up and tries to ambulate. He reports several falls causing abrasions to his right arm as well as his left face over the last couple of days. He states he is not eating or drinking. He has a brother at the bedside who corroborates with this. Patient has not been drinking heavily for the last 3 weeks. He still is drinking one or 2 beers a day however according to his report. He does smoke heavily as well. He did see his senior research consultant 2 days ago regards to left facial skin cancer. He was told that the skin cancers too involved for dermatologic procedure in the office and that he would need to see a surgeon regarding more invasive treatment. The follow up is pending. Patient reports generalized body pains. He states he has a history of rheumatologic disease. He is also complaining of pain in the left facial area from his fall. He denies chest pain or shortness of breath he denies headache. Of note is well patient recently had a left eye infection. He did see the [facility] regarding this. He is on some drops for this. He reports complete loss of the vision in his left eye over the last 2 weeks however and has planned follow up. On hospitalization the patient was noted to have hemoglobin drop for which GI was consulted A did apparently appear to be pancytopenia secondary to probably bone marrow depression from alcohol. He was transfused 2 units packed red blood cells. He stool occult blood was negative. He did have a CT of the abdomen which showed liver cirrhosis. We did discuss all the findings and the need to have twice yearly ultrasound to rule out hepatocellular carcinoma. He is also to follow with GI outpatient. Physical therapy evaluation. And as requested for a [facility] facility as he is still generally weak. We did discuss the finding of facial skin cancer with the patient this will be followed outpatient as he already has a physician working on this and discussed this with the son and with the older brother. We did expressly discussed with him need to quit alcohol use patient verbalized understanding the risk associated discussed in detail. He is clinically stable at this point tolerating diet he did have an episode where he was unable to void but this resolved. Images study also revealed bilateral pleural effusion considering the patient is breathing appropriately no indication to sample the pulmonary fluids. Nevertheless findings were explained to the patient and family. As he may need to be reevaluated outpatient to repeat imaging studies required to ensure resolution. [facility] was placed for urinary retention patient was started on Flomax will reevaluate and discuss at facility. Discharge diagnosis * Acute blood loss anemia -secondary to alcohol bone marrow depression. * Hypotensive-resolved * Failure to thrive in an adult * Facial skin cancer w/ cellulitis * Hyponatremia * Alcohol liver disease with superimposed fatty liver disease * Thrombocytopenia likely secondary to alcohol abuse * liver cirrhosis * Possible spenic infarct * Bilateral pleural effusion- * Anasarca * Hypokalemia * Bilateral lower extremity cellulitis * Alcohol abuse * Anorexic with severe protein calorie malnutrition * Generalized weakness * Deconditioning Disposition: DC/[facility] C[facility] Time spent for discharge: 35 mins Core Measure Documentation - Palliative Care Palliative Care/ Comfort Measures: Not Applicable - Core Measures Any of the following diagnoses?: none - VTE Discharge Requirements Deep Vein Thrombosis/Pulmonary Embolism Present on Admission: No Exam - Physical Exam Narrative exam: VITAL SIGNS: Reviewed. GENERAL: The patient appeared cachetic. Vital signs as documented. HEAD: No signs of head trauma.(left facial carcinoma, with lateral abrasion), EYES: Left pupil nonreactive. Extraocular motions intact. EARS: Hearing grossly intact. MOUTH: Oropharynx is normal. NECK: No adenopathy, no JVD. CHEST: Chest with clear breath sounds bilaterally. No wheezes, rales, or rhonchi. CARDIAC: Regular rate and rhythm. S1 and S2, without murmurs, gallops, or rubs. VASCULAR: 1+ Edema. Peripheral pulses normal and equal in all extremities. ABDOMEN: Soft, without detectable tenderness. No sign of distention. No rebound or guarding, and no masses palpated. Bowel Sounds normal. MUSCULOSKELETAL: Good range of motion of all major joints. Extremities without clubbing, cyanosis. + trace edema bilaterally. NEUROLOGIC EXAM: Alert and oriented x 3. No focal sensory or strength deficits. Speech normal. Follows commands. PSYCHIATRIC: Mood normal. SKIN: ;left facial abrasion - Constitutional Vitals: Temp Pulse Resp BP Pulse Ox 100.1 F H 98 H 18 121/73 97 07/26/16 08:00 07/26/16 08:00 07/26/16 08:00 07/26/16 08:00 07/26/16 08:00 Plan Activity: advance as tolerated, fall precautions Diet: regular Special Instructions: record daily weights, record daily BP diary, physical therapy, occupational therapy Additional Instructions: Follow with outpatient oncologist and surgeon as previously planned. ANDRES manuel in 2 days at the SNF and if still with retention then follow with Urologist Follow up with: AVTAR RING MD [Primary Care Provider] - 3-5 Days OSMEL ELY MD [Staff Physician] - 7 Days Prescriptions: Ferrous Sulfate [Feosol 325 MG tab] 325 mg PO BID #60 tablet Folic Acid [Folvite] 1 mg PO DAILY #30 tablet Levofloxacin [Levaquin TAB] 500 mg PO Q24HR #7 tablet Nicotine [Habitrol] 21 mg TD QDAY #30 patch oxyCODONE [Roxicodone TAB] 5 mg PO Q8H #30 tablet Potassium Chloride [K-Dur] 30 meq PO QDAY #30 tablet Sennosides Tab [Senokot] 8.6 mg PO Q12HR #30 tablet Tamsulosin [Flomax] 0.4 mg PO QDAY #30 capsule
[2016-07-26 09:53] LABS: Anion Gap 17 mmol/L; Blood Urea Nitrogen 3 mg/dL (9-20); Calcium 6.8 mg/dL (8.4-10.2); Carbon Dioxide 19 mmol/L (22-30); Chloride 101.4 mmol/L (98-107); Glucose 112 mg/dL (75-100); Potassium 3.4 mmol/L (3.6-5.0); Sodium 134 mmol/L (137-145)
[2016-07-26] MEDS ORDERED: FLOMAX PO SCH (10:00)
[2016-07-26] MEDS: HABITROL TD SCH (10:12)
[2016-07-26] MEDS: K-DUR PO SCH (10:13)
[2016-07-26] MEDS: PROTONIX IV SCH (10:13)
[2016-07-26] MEDS: ULTRAM PO PRN (10:14)
[2016-07-26] MEDS: LEVAQUIN PO SCH (10:14)
[2016-07-26] MEDS: FOLVITE PO SCH (10:15)
[2016-07-26] MEDS: VITAMIN B-1 PO SCH (10:16)
[2016-07-26] MEDS: SENOKOT PO SCH (19:22)
[2016-07-26] MEDS: COLACE PO SCH (19:22)
--- NOTE | 2016-07-28 07:47 | Physician Progress Note ---
SUBJECTIVE: The patient is sitting up in the bed. He is fully alert, oriented, not in apparent distress. His facial bruises, abrasions have been healing reasonably well. He reports no nosebleed, no gum bleed, no hematuria, no ____, no melena. Already seen by GI. No new syncope or near syncope. No abdominal pain, no nausea or vomiting. OBJECTIVE: VITAL SIGNS: Temperature 98.4, blood pressure 102/66, pulse 99, respirations 18. GENERAL: The patient is sitting up in bed. Fully alert and oriented. Not in apparent distress or pain. Complains of no pain at the time of visit. SKIN: Previously described abrasion, bruises, been healing reasonably well. He continues to have lesion on the left side of the face, consistent with cancer, already followed by the Dermatology, plan for surgery. HEENT: Pale conjunctiva. Normal sclerae color. NECK: No adenopathy. CHEST: Normal breathing pattern. LUNGS: Clear. No rales, no wheezing. HEART: Regular rate and rhythm. No S3 gallop. ABDOMEN: Soft, nontender. EXTREMITIES: No calves tenderness positive. CENTRAL NERVOUS SYSTEM: No acute MOTORCYCLE TESTER deficits. LABORATORY DATA: White blood count yesterday 4.4, hemoglobin 9.1, platelets of 259,000 . Hepatitis panel negative. B12 normal. Folic acid low at 6.53. Recent CT scan of the abdomen findings consistent with liver cirrhosis. GI evaluated the patient, conservative management now. Hold off on endoscopic evaluation unless they show sign of variceal GI bleeding. Also, they noted possible splenic infarct and bilateral lower extremity edema secondary to low albumin. ASSESSMENT: 1. Pancytopenia, secondary to alcoholism, liver cirrhosis, bone marrow suppression by alcohol. 2. Anemia, multifactorial, including possible ?gastrointestinal blood loss, improved post transfusion, could rule out esophageal varices, also anemia secondary to liver disease, folate deficiency, seen by Gastroenterology, hold off EGD now conservative therapy. 3. Thrombocytopenia, secondary to alcoholism, liver cirrhosis, recent acute illness, improved. 4. Bilateral lower extremities cellulitis, receiving therapy. 5. History of alcoholism, appears stable, no withdrawal symptoms. 6. Protein-calorie malnutrition. 7. Recent multiple falls, abrasions, recovering. Possible nose fracture secondary to fall. PLAN: 1. Continue to monitor hematologic feature. As noted if overt bleeding has noted, GI considering endoscopy. Otherwise, continue conservative management, blood transfusion as needed. He is already receiving multivitamins. JOB# [id number] ASA/NTS KENYON
== END 2016-07-26 11:30 | DRG 808 ==
LOC: ED 19:33 → 3A 22:16
PROVIDERS: ADMIT Internal Medicine; ATTEND Internal Medicine
PROC: 30233N1 Transfusion of Nonautologous Red Blood Cells into Peripheral Vein, Percutaneous Approach (ICD-10-PCS; principal; 2016-07-23)
DX: D61.2 Aplastic anemia due to other external agents (principal); E43 Unspecified severe protein-calorie malnutrition; E87.1 Hypo-osmolality and hyponatremia; F10.20 Alcohol dependence, uncomplicated; C44.80 Unspecified malignant neoplasm of overlapping sites of skin; L03.116 Cellulitis of left lower limb; L03.115 Cellulitis of right lower limb; L03.211 Cellulitis of face; D73.5 Infarction of spleen; K70.30 Alcoholic cirrhosis of liver without ascites; F17.210 Nicotine dependence, cigarettes, uncomplicated; H10.32 Unspecified acute conjunctivitis, left eye; E86.0 Dehydration; S50.811A Abrasion of right forearm, initial encounter; W19.XXXA Unspecified fall, initial encounter; R62.7 Adult failure to thrive; D69.59 Other secondary thrombocytopenia; R64 Cachexia; D62 Acute posthemorrhagic anemia; I95.9 Hypotension, unspecified; K70.0 Alcoholic fatty liver; J90 Pleural effusion, not elsewhere classified; E87.6 Hypokalemia; Z68.1 Body mass index [BMI] 19.9 or less, adult; Y92.89 Other specified places as the place of occurrence of the external cause; Y99.8 Other external cause status; Z90.49 Acquired absence of other specified parts of digestive tract; Z91.81 History of falling
CPT/HCPCS: 36415; 70150; 74160; 80048; 80053; 80074; 81001; 82270; 82607; 82728; 82747; 82962; 83550; 83735; 84439; 84443; 85025; 85027; 85045; 85610; 85730; 86850; 86900; 86901; 86920; 87040; 87493; 93005; 93010; 94760; 96374; C9113; J1170; J1650; J1940; J1956; J2060; J2270; J3411; J7030; J7040; P9016; Q9967

== ENCOUNTER 2016-08-06 11:15 | Outpatient (CLI) | payer MEDICAID ==
--- NOTE | 2016-08-06 13:28 | Mammography Report ---
BONE DENSITY STUDY: DEFINITIONS: BMD = Bone Mineral Density T-score = BMD related to mean peak bone mass of young adult (mean expressed in Standard Deviation) Z-score = Age matched BMD expressed in SD World Health Organization (WHO) Diagnostic Criteria Normal T-score > -1 SD Osteopenia T-score between -1 and -2.4 SD Osteoporosis T-score -2.5 SD or below FINDINGS: The weighted average BMD of lumbar spine L1-L4 is 0.987 with a T-score of -0.9. The weighted average BMD of hip is 0.737 with a T-score of -2.0. IMPRESSION: The patient's T-score is diagnostic for osteopenia and average relative risk for fracture. NOTE: BMD is not the only risk factor for fracture; also consider factors such as the patient's age, risk of falling, previous osteoporotic fracture, family history of osteoporotic fractures, current smoker, and low body weight. Lagunas's triangle is a region of interest in femur, predominantly of trabecular bone. It is not a true anatomic site, and [facility] does not recommend its use clinically.
== END 2016-08-06 11:16 | disposition home or self-care (01) ==
LOC: MAMMO 11:15
PROVIDERS: ATTEND Internal Medicine
DX: M85.88 Other specified disorders of bone density and structure, other site (principal)
CPT/HCPCS: 77080

== ENCOUNTER 2016-12-29 11:58 | Outpatient (CLI) | payer MEDICAID ==
[2016-12-29 13:21] LABS: Blood Urea Nitrogen 10 mg/dL (9-20)
[2016-12-29] MEDS ORDERED: NACL ONE (14:24)
--- NOTE | 2016-12-30 08:27 | Cat Scan Report ---
CT NECK WITH CONTRAST: HISTORY: Squamous cell carcinoma of left cheek. COMPARISON: No relevant comparisons at this facility. TECHNIQUE: Helical CT following IV contrast. Sagittal and coronal reformatted images. FINDINGS: The parotid and submandibular glands are normal. The carotid sheaths are intact. There is no evidence of adenopathy within the neck. The thyroid gland is normal. The glottic structures are normal. The airway is patent. Strap musculature is unremarkable. Hyoid bone and thyroid cartilage are intact. The vascular structures are widely patent. There is mild cervical spondylosis but no suspicious bony lesion. The imaged brain is unremarkable. IMPRESSION: Unremarkable CT neck with contrast. No evidence for disease recurrence or metastasis in the neck. The left cheek area is unremarkable on CT.
--- NOTE | 2016-12-30 08:31 | Cat Scan Report ---
CT CHEST WITH CONTRAST: HISTORY: Squamous cell carcinoma of the left cheek. COMPARISON: No relevant comparison at this facility. TECHNIQUE: Helical CT following IV contrast. Sagittal and coronal reformatted images. FINDINGS: Heart size is normal. There is no evidence of adenopathy within the mediastinum. Pulmonary nehemiah are free of any mass and the lungs are clear of infiltrates. The pleura is unremarkable. Minor subpleural scarring at the right apex is noted. No masses involve the chest wall. No abnormalities are noted within the upper abdomen. The adrenal glands are normal. Mild bilateral gynecomastia is noted. IMPRESSION: Unremarkable CT scan of the chest. No evidence for disease metastasis to the chest. Mild bilateral gynecomastia.
== END 2016-12-29 11:59 | disposition home or self-care (01) ==
LOC: CT 11:58
PROVIDERS: ATTEND Radiology Radiation Oncology
DX: C76.0 Malignant neoplasm of head, face and neck (principal); J98.4 Other disorders of lung; N62 Hypertrophy of breast; M47.892 Other spondylosis, cervical region; J18.9 Pneumonia, unspecified organism; D64.9 Anemia, unspecified; F17.200 Nicotine dependence, unspecified, uncomplicated
CPT/HCPCS: 36415; 70491; 71260; 82565; 84520; Q9967

== ENCOUNTER 2017-10-20 14:58 | Outpatient (CLI) | payer MEDICAID ==
--- NOTE | 2017-10-21 10:53 | Magnetic Resonance Report ---
MRI CERVICAL SPINE WITHOUT CONTRAST INDICATION: Low back pain. COMPARISON: 12/29/[address] images. FINDINGS: Noncontrast axial and sagittal T1 and T2-weighted MRI of the cervical spine demonstrates normal vertebral body stature and alignment. Adjacent C4 and C5 edema signal noted with mild endplate irregularities/Schmorl's nodes measuring up to 0.6 cm along C5 superior endplate. Intact craniocervical articulation and cervicomedullary junction without evidence of Chiari malformation. No focal abnormal intrinsic cord signal. Normal paraspinal soft tissues. On the obtained axial images: C2-C3 suggests right neural foraminal narrowing as on axial series 6, image 18. C3-C4 suggest mild diffuse disc bulge with ventral CSF effacement and approaching the cord, axial image 21. C4-C5 demonstrates moderate disc narrowing. Slight increased disc signal/edema may also be present, though without evidence of a paraspinal mass. Right neural foraminal narrowing as on axial image 18. C5-C6 also suggests mild to moderate disc narrowing. Mild diffuse disc bulge/osteophyte complex/uncovertebral spurring with bilateral neural foraminal narrowing. C6-C7 suggests disc narrowing and mild diffuse disc bulge/osteophyte complex. No cord compression. C7-T1 is unremarkable. CONCLUSION: Multilevel cervical spine spondylosis, including active C4-C5 edema felt secondary to Modic type I degenerative changes over subtle discitis/osteomyelitis at this time. Please correlate. Thank you for the opportunity to participate in this patient's care.
== END 2017-10-20 14:59 | disposition home or self-care (01) ==
LOC: MRI 14:58
PROVIDERS: ATTEND Physical Medicine & Rehabilitation
DX: M47.892 Other spondylosis, cervical region (principal); M54.16 Radiculopathy, lumbar region; M54.12 Radiculopathy, cervical region; F17.210 Nicotine dependence, cigarettes, uncomplicated; J18.9 Pneumonia, unspecified organism; Z90.49 Acquired absence of other specified parts of digestive tract
CPT/HCPCS: 72141